=== PATIENT | female | born 1970 | race African-American/Black ===

== ENCOUNTER 2017-02-22 11:14 | Inpatient (IN) | payer MEDICARE, BC ==
[~2017-02-22] VITALS: Ht 162.6 cm; Wt 74.8 kg
[2017-02-22] MEDS: SODIUM CHLORIDE 0.9% FLUSH 10 ML FLUSH IV FLUSH SCH (01:15)
[2017-02-22] MEDS ORDERED: ONDANSETRON HCL 4 MG/2 ML VIAL IV PUSH ONE ×2 (12:00)
[2017-02-22] MEDS ORDERED: PROPOFOL 200 MG/20 ML AMP IV ONE (12:00)
[2017-02-22] MEDS ORDERED: CISATRACURIUM BESYLATE 20 MG/10 ML VIAL IV ONE (12:00)
[2017-02-22] MEDS ORDERED: SODIUM CHLORID 0.9% 500 ML INJ 500 ML IV ONE (12:00)
[2017-02-22] MEDS ORDERED: NORMOSOL R INJ 1,000 ML IV ONE (12:00)
[2017-02-22 13:08] LABS: AUTOMATED NEUTROPHIL # 3.4 TH/MM3 (1.8-7.7); BASOPHIL # 0.1 TH/MM3 (0-0.2); EOSINOPHIL # 0.1 TH/MM3 (0-0.4); EOSINOPHIL % 2.2 % (0.0-4.0); LYMPH % 22.4 % (9.0-44.0); LYMPHOCYTE # 1.2 TH/MM3 (1.0-4.8); MEAN CORPUSCULAR HEMOGLOBIN 23.4 PG (27.0-34.0); MEAN CORPUSCULAR HGB CONC 31.2 % (32.0-36.0); MONO % 12.3 % (0.0-8.0); NEUT % 62.1 % (16.0-70.0); PLATELET COUNT 161 TH/MM3 (150-450); RED CELL DISTRIBUTION WIDTH 19.4 % (11.6-17.2); WHITE BLOOD COUNT 5.5 TH/MM3 (4.0-11.0)
[2017-02-22 13:12] LABS: HEMO FLAGS AUTO DIFF
[2017-02-22 13:16] LABS: APTT (PATIENT) 42.8 SEC (24.3-30.1); INTERNATIONAL NORMALIZED RATIO 1.1 RATIO; PROTHROMBIN TIME - PATIENT 11.7 SEC (9.8-11.6)
[2017-02-22] MEDS ORDERED: SEVEL800 PO (13:28)
[2017-02-22] MEDS ORDERED: LISI-515 PO (13:28)
[2017-02-22] MEDS ORDERED: MYCO500 PO (13:28)
[2017-02-22] MEDS ORDERED: CLON0.1T PO (13:28)
[2017-02-22] MEDS ORDERED: LABE300T PO (13:28)
[2017-02-22] MEDS ORDERED: FURO1TAB61 PO (13:28)
[2017-02-22] MEDS ORDERED: SPIR25 PO (13:28)
[2017-02-22] MEDS ORDERED: ACET1CAP18 PO (13:28)
[2017-02-22] MEDS ORDERED: MYCOPHENOLATE MOFETIL 500 MG TAB PO SCH (13:30)
[2017-02-22] MEDS ORDERED: ACETAMINOPHEN 325 MG TAB PO PRN (13:30)
[2017-02-22] MEDS ORDERED: diphenhydrAMINE HCL 50 MG/ML VIAL IV ONE (13:30)
[2017-02-22] MEDS ORDERED: ceFAZolin 2 GM PREMIX 50 ML IV ONE (13:30)
[2017-02-22] MEDS ORDERED: NALOXONE HCL 0.4 MG/ML AMP IV PRN (13:30)
[2017-02-22] MEDS ORDERED: BISACODYL 10 MG SUPP RECTAL PRN (13:30)
[2017-02-22] MEDS ORDERED: THYMOGLOBULIN ANAPYLAXIS KIT MISC XX PRN (13:30)
[2017-02-22] MEDS ORDERED: methylPREDNISolone SOD SUCC 125 MG/2 ML VIAL IV PUSH ONE (13:30)
[2017-02-22] MEDS ORDERED: SODIUM CHLORIDE 0.9% FLUSH 10 ML FLUSH IV FLUSH PRN (13:30)
[2017-02-22] MEDS ORDERED: ONDANSETRON HCL 4 MG/2 ML VIAL IVP PRN (13:30)
[2017-02-22 13:33] LABS: ALT (GPT) 11 U/L (10-53); ANION GAP 8 MEQ/L (5-15); AST (GOT) 11 U/L (15-37); BLOOD UREA NITROGEN 14 MG/DL (7-18); CHLORIDE 102 MEQ/L (98-107); GLOMERULAR FILTRATION RATE 12 ML/MIN (>89); POTASSIUM 3.5 MEQ/L (3.5-5.1); SODIUM (NA) 139 MEQ/L (136-145)
--- NOTE | 2017-02-22 13:35 | HHI.HP ---
[facility] Service Transplant Medicine Primary Care Physician Marco Valadez MD Admission Diagnosis End-stage renal disease for kidney transplant Diagnoses: (1) ESRD (end stage renal disease) on dialysis Diagnosis: Principal (2) Hypertension Diagnosis: Secondary (3) SLE (systemic lupus erythematosus) Diagnosis: Secondary Chief Complaint: Here for kidney transplant International Travel<30 Days: No Contact w/Intl Traveler<30days: No Known Affected Area: No History of Present Illness Patient is a 47-year-old female with history of end-stage renal disease, diabetes, hypertension, SLE who is on hemodialysis has a left arm AV fistula received her dialysis this morning, she was called in for a kidney transplant, she denies any chest pain shortness of breath palpitations, fevers chills at, nausea vomiting diarrhea, she states she is in fine health and there are no medical issues, she saw us in and out of December this year, she is on the list for kidney transplant. Review of Systems Constitutional: DENIES: Diaphoretic episodes, Fatigue, Fever, Weight gain, Weight loss, Chills, Dizziness, Change in appetite, Night Sweats Endocrine: COMPLAINS OF: Abnorml menstrual pattern, DENIES: Heat/cold intolerance, Polydipsia, Polyuria, Polyphagia Eyes: DENIES: Blurred vision, Diplopia, Eye inflammation, Eye pain, Vision loss , Photosensitivity, Double Vision Ears, nose, mouth, throat: DENIES: Tinnitus, Hearing loss, Vertigo, Nasal discharge, Oral lesions, Throat pain, Hoarseness, Ear Pain, Running Nose, Epistaxis, Sinus Pain, Toothache, Odynophagia Respiratory: DENIES: Apneas, Cough, Snoring, Wheezing, Hemoptysis, Sputum production, Shortness of breath Cardiovascular: DENIES: Chest pain, Palpitations, Syncope, Dyspnea on Exertion , PND, Lower Extremity Edema, Orthopnea, Claudication Gastrointestinal: DENIES: Abdominal pain, Black stools, Bloody stools, Constipation, Diarrhea, Nausea, Vomiting, Difficulty Swallowing, Anorexia Genitourinary: DENIES: Abnormal vaginal bleeding, Dysmenorrhea, Dyspareunia, Sexual dysfunction, Urinary frequency, Urinary incontinence, Urgency, Hematuria , Dysuria, Nocturia, Vaginal discharge Musculoskeletal: DENIES: Joint pain, Muscle aches, Stiffness, Joint Swelling, Back pain, Neck pain Integumentary: DENIES: Abnormal pigmentation, Pruritus, Rash, Nail changes, Breast masses, Breast skin changes, Nipple discharge Hematologic/lymphatic: DENIES: Bruising, Lymphadenopathy Immunologic/allergic: DENIES: Eczema, Urticaria Neurologic: DENIES: Abnormal gait, Headache, Localized weakness, Paresthesias, Seizures, Speech Problems, Tremor, Poor Balance Psychiatric: DENIES: Anxiety, Confusion, Mood changes, Depression, Hallucinations, Agitation, Suicidal Ideation, Homicidal Ideation, Delusions Past Family Social History Past Medical History End-stage renal disease on hemodialysis goes on Monday and Monday History of peritoneal dialysis Hypertension Diabetes diet controlled SLE Anemia Secondary hyperparathyroidism Past Surgical History Tenckhoff catheter placement and removal AV fistula left arm Reported Medications Reported Meds & Active Scripts Active Reported Tylenol (Acetaminophen) 325 Mg Cap 650 Mg PO Q6H PRN Renvela (Sevelamer Carbonate) 800 Mg Tab 800 Mg PO TIDAC Lisinopril 20 Mg Tab 20 Mg PO BID Aldactone (Spironolactone) 25 Mg Tab 25 Mg PO BID Labetalol (Labetalol HCl) 300 Mg Tab 300 Mg PO TID Cellcept (Mycophenolate Mofetil) 500 Mg Tab 500 Mg PO BID Lasix (Furosemide) 80 Mg Tab 80 Mg PO BID Clonidine (Clonidine HCl) 0.1 Mg Tab 0.1 Mg PO BID PRN Allergies: Coded Allergies: No Known Allergies (Unverified , 02/22/17) Active Ordered Medications Current Medications Medications (Trade) Dose Ordered Sig/Handy Route Start Time Stop Time Status Last Admin (NS 1000 ml Inj) 1,000 ml @ 40 mls/hr Q24H IV 02/22/17 13:00 Family History Her mother had hemodialysis and kidney failure diabetes Social History Denies smoking or alcohol use Physical Exam Vital Signs BP 141/88 P 76 T 98.3 RR 16 Physical Exam GENERAL: This is a well-nourished, well-developed patient, in no apparent distress. SKIN: No rashes, ecchymoses or lesions. Cool and dry. HEAD: Atraumatic. Normocephalic. No temporal or scalp tenderness. EYES: Pupils equal round and reactive. Extraocular motions intact. No scleral icterus. No injection or drainage. ENT: Nose without bleeding, purulent drainage or septal hematoma. Throat without erythema, tonsillar hypertrophy or exudate. Uvula midline. Airway patent. NECK: Trachea midline. No JVD or lymphadenopathy. Supple, nontender, no meningeal signs. CARDIOVASCULAR: Regular rate and rhythm without murmurs, gallops, or rubs. RESPIRATORY: Clear to auscultation. Breath sounds equal bilaterally. No wheezes , rales, or rhonchi. GASTROINTESTINAL: Abdomen soft, non-tender, nondistended. No hepato-splenomegaly , or palpable masses. No guarding. MUSCULOSKELETAL: Extremities without clubbing, cyanosis, or edema. No joint tenderness, effusion, or edema noted. No calf tenderness. Negative Homans sign bilaterally. AV fistula left arm NEUROLOGICAL: Awake and alert. Cranial nerves II through XII intact. Motor and sensory grossly within normal limits. Five out of 5 muscle strength in all muscle groups. Normal speech. Laboratory Laboratory Tests Test 02/22/17 02/22/17 12:16 12:41 White Blood Count 5.5 Red Blood Count 4.40 Hemoglobin 10.3 Hematocrit 33.0 Mean Corpuscular Volume 75.0 Mean Corpuscular Hemoglobin 23.4 Mean Corpuscular Hemoglobin 31.2 Concent Red Cell Distribution Width 19.4 Platelet Count 161 Mean Platelet Volume 9.4 Neutrophils (%) (Auto) 62.1 Lymphocytes (%) (Auto) 22.4 Monocytes (%) (Auto) 12.3 Eosinophils (%) (Auto) 2.2 Basophils (%) (Auto) 1.0 Neutrophils # (Auto) 3.4 Lymphocytes # (Auto) 1.2 Monocytes # (Auto) 0.7 Eosinophils # (Auto) 0.1 Basophils # (Auto) 0.1 CBC Comment AUTO DIFF Prothrombin Time 11.7 Prothromb Time International 1.1 Ratio Activated Partial 42.8 Thromboplast Time Blood Type A POSITIVE Result Diagram: 02/22/17 1216 Assessment and Plan Problem List: (1) ESRD (end stage renal disease) on dialysis Status: Chronic Plan: Patient has received kidney transplant offer, she appears to good candidate and has been on the list initiated the protocol give her CellCept, she will receive Solu-Medrol and Thymoglobulin in the operating room Dr. Amador will follow She understands that that after the transplant. His gradual improvement and occasionally hemodialysis needs to be performed (2) Hypertension Status: Acute Plan: Continue monitor (3) SLE (systemic lupus erythematosus) Status: Chronic Plan: Patient has been treated in the past Physician Certification 2 Midnight Certification Type: Admission for Inpatient Services Order for Inpatient Services The services are ordered in accordance with Medicare regulations or non- Medicare payer requirements, as applicable. In the case of services not specified as inpatient-only, they are appropriately provided as inpatient services in accordance with the 2-midnight benchmark. Estimated LOS (days): 5 days is the estimated time the patient will need to remain in the hospital, assuming treatment plan goals are met and no additional complications. Post-Hospital Plan: Home Alfredito Issa MD February 22, 2017 13:35
[2017-02-22 13:36] LABS: ALKALINE PHOSPHATASE 73 U/L (45-117); TOTAL BILIRUBIN ADULT 0.5 MG/DL (0.2-1.0)
[2017-02-22 13:37] LABS: SCAN/DIFF AUTO DIFF CONFIRMED
[2017-02-22] MEDS ORDERED: ANTITHYMOCYTE GLOB IV-CENTRAL ONE (14:00)
[2017-02-22] MEDS ORDERED: DOCUSATE SODIUM 100 MG CAP PO SCH (14:00)
[2017-02-22] MEDS ORDERED: SODIUM CHLORID 0.9% IV-CENTRAL ONE (14:00)
[2017-02-22] MEDS ORDERED: SODIUM CHLOR 0.9% 1000 ML INJ 1,000 ML IV SCH (14:00)
--- NOTE | 2017-02-22 14:01 | RADRPT ---
EXAM DATE/TIME: 02/22/2017 13:42 [facility] COMPARISON: No previous studies available for comparison. INDICATIONS : Evaluate for pneumonia, pneumothorax or communicable disease. Pre op for kidney transplant. MEDICAL HISTORY : Hypertension. Anemia. Diabetic. SURGICAL HISTORY : AV fistula. ENCOUNTER: Initial ACUITY: 1 day PAIN SCORE: 0/10 LOCATION: Chest FINDINGS: A right internal jugular tunnel dialysis catheter has its tips in the superior vena cava. There is n o pneumothorax. The heart is mildly prominent. The pulmonary vascular pattern is normal. The lungs are clear. CONCLUSION: 1. No acute focal pulmonary infiltrate or pulmonary vascular congestion. 2. Mild cardiomegaly. Dustin Heaton MD on February 22, 2017 at 13:57 Board Certified Radiologist. This report was verified electronically.
[2017-02-22] MEDS: NS 1000 ML IV SCH (14:30)
[2017-02-22 15:00] VITALS: PULSE 76
[2017-02-22 15:47] VITALS: BP 141/88; PULSE 80; RESP 16; TEMP 98.3; O2SAT 100
[2017-02-22] MEDS ORDERED: BUPIVACAINE HCL PF 0.5% 30 ML VIAL ONE (15:48)
[2017-02-22] MEDS ORDERED: SODIUM BICARBONATE 8.4% INJ 50 ML ONE (15:48)
[2017-02-22] MEDS ORDERED: PAPAVERINE INJ 60 MG/2 ML VIAL ONE (15:49)
[2017-02-22] MEDS ORDERED: MINERAL OIL 10 ML VIAL ONE (15:49)
[2017-02-22] MEDS ORDERED: HEPARIN SODIUM - SQ 10,000 UNITS/ML VIAL ONE (15:49)
[2017-02-22] MEDS ORDERED: LIDOCAINE HCL 2% 50 ML VIAL ONE (15:49)
[2017-02-22 16:05] VITALS: PULSE 79
[2017-02-22] MEDS ORDERED: ACETAMINOPHEN 1000 MG/100 ML VIAL IV ONE (18:32)
[2017-02-22] MEDS ORDERED: MIDAZOLAM HCL 2 MG/2 ML VIAL ONE (19:59)
[2017-02-22] MEDS ORDERED: fentaNYL CITRATE 250 MCG/5 ML AMP ONE (19:59)
[2017-02-22] MEDS ORDERED: BACITRACIN IM FOR SOLN 50,000 UNIT VIAL IM ONE (21:33)
[2017-02-22] MEDS ORDERED: CUSTODIOL HTK IRR SOLN 1,000 ML IRRIGATION ONE (21:40)
[2017-02-22 22:44] LABS: BLOOD GAS BASE EXCESS -2.7 mmol/L (-2-2); BLOOD GAS CARBOXYHEMOGLOBIN 1.8 % (0-4); BLOOD GAS HCO3 21 mmol/L (22-26); BLOOD GAS METHEMOGLOBIN 1.6 % (0-2); BLOOD GAS O2 HGB SATURATION 96 % (90-100); BLOOD GAS OXYGEN CONTENT 14.7 Vol % (12.0-20.0); BLOOD GAS PCO2 31 mmHg (38-42); BLOOD GAS PO2 228 mmHg (61-120); BLOOD GAS TOTAL HGB 10.5 G/DL (12.0-16.0); CRITICAL VALUE NO; DRAW SITE OR GAS; FIO2 52 %; OXYGEN DEVICE OR GAS; TEMP CORR TO 98.6; VENT SETTINGS OR GAS
[2017-02-23] VITALS (16 sets, daily range): BP systolic 143–186; BP diastolic 68–96; PULSE 73–102; RESP 16–20; TEMP 98.6–99.8; O2SAT 98–100
[2017-02-23] MEDS ORDERED: MORPHINE SULFATE 30 MG/30 ML PCA ONE (00:49)
[2017-02-23] MEDS ORDERED: ONDANSETRON INJ 8 MG in DEXTROSE 5% IN WATER INJ 50 ML IV PRN ×2 (01:00)
[2017-02-23] MEDS ORDERED: GLUCAGON 1 MG/ML VIAL OTHER PRN (01:00)
[2017-02-23] MEDS ORDERED: RESP: ALBUTEROL 2.5 MG/IPRATROPIUM 0.5 MG NEB (PRN) INH (01:00)
[2017-02-23] MEDS ORDERED: DEXTROSE 50% IN WATER 50 ML VIAL(D50) IV PUSH PRN (01:00)
[2017-02-23] MEDS: PCA - TOTAL MG MORPHINE DELIVERED PER SHIFT SCH ×3 (01:00→22:00)
[2017-02-23] MEDS ORDERED: NALOXONE HCL 0.4 MG/ML AMP IV PRN (01:00)
[2017-02-23] MEDS ORDERED: ONDANSETRON HCL 4 MG/2 ML VIAL IV PRN (01:00)
[2017-02-23] MEDS ORDERED: diphenhydrAMINE HCL 25 MG CAP PO PRN (01:00)
[2017-02-23] MEDS ORDERED: diphenhydrAMINE HCL 50 MG/ML VIAL IV PRN (01:00)
[2017-02-23] MEDS: DEXT 5%-NACL 0.45% 1000 ML INJ 1,000 ML IV SCH ×2 (01:15→22:20)
[2017-02-23] MEDS ORDERED: *morphine SULFATE 8 MG/ML PERIprocedure ONLY ONE (01:19)
[2017-02-23 01:33] LABS: AUTOMATED NEUTROPHIL # 7.7 TH/MM3 (1.8-7.7); BASOPHIL % 0.2 % (0.0-2.0); EOSINOPHIL % 0.1 % (0.0-4.0); HEMATOCRIT 32.2 % (35.0-46.0); LYMPH % 0.3 % (9.0-44.0); MEAN CORPUSCULAR HEMOGLOBIN 23.7 PG (27.0-34.0); MEAN CORPUSCULAR HGB CONC 32.1 % (32.0-36.0); MONO % 5.3 % (0.0-8.0); NEUT % 94.1 % (16.0-70.0); PLATELET COUNT 141 TH/MM3 (150-450); RED BLOOD COUNT 4.35 MIL/MM3 (4.00-5.30); RED CELL DISTRIBUTION WIDTH 19.4 % (11.6-17.2); WHITE BLOOD COUNT 8.2 TH/MM3 (4.0-11.0)
[2017-02-23 01:34] LABS: HEMO FLAGS AUTO DIFF
--- NOTE | 2017-02-23 01:47 | RADRPT ---
EXAM DATE/TIME: 02/23/2017 01:10 [facility] COMPARISON: No previous studies available for comparison. INDICATIONS : Post line placement. MEDICAL HISTORY : Hypertension. Diabetes mellitus type II. SURGICAL HISTORY : Kidney transplant. ENCOUNTER: Initial ACUITY: 1 day PAIN SCORE: Non-responsive. LOCATION: Bilateral chest FINDINGS: The cardiac silhouette is enlarged in transverse diameter. There is prominence of the central pulmona ry vasculature with indistinct vascular margins compatible with vascular congestion but no evidence o f overt failure. A left sided internal jugular vein catheter is in place without pneumothorax with it s tip in the superior vena cava. A permacath is in place via right internal jugular approach with its tip in the superior vena cava. CONCLUSION: 1. Uncomplicated line placement. No evidence of pneumothorax. Howard Hernandez MD on February 23, 2017 at 1:43 Board Certified Radiologist. This report was verified electronically.
[2017-02-23 01:56] LABS: BICARBONATE 24.7 MEQ/L (21.0-32.0); MAGNESIUM 1.9 MG/DL (1.5-2.5)
[2017-02-23 02:12] LABS: BANDS 3 % (0-6); NEUTROPHIL # MANUAL DIFF 7.8 TH/MM3 (1.8-7.7); POLYS (SEG NEUTROPHILS) 92 % (16-70); SCAN/DIFF FINAL DIFF MANUAL; WBC DIFF SAMPLE 100
[2017-02-23 02:14] LABS: ACANTHOCYTES OCC (NORMAL); OVALOCYTES 1+ (NORMAL); PLATELET ESTIMATE SMEAR NORMAL (NORMAL); PLATELET MORPHOLOGY NORMAL (NORMAL)
[2017-02-23] MEDS: MORPHINE SULFATE 30 MG/30 ML PCA IV SCH (02:18)
[2017-02-23 06:26] LABS: AUTOMATED NEUTROPHIL # 8.9 TH/MM3 (1.8-7.7); BASOPHIL % 0.2 % (0.0-2.0); HEMATOCRIT 31.9 % (35.0-46.0); LYMPH % 0.6 % (9.0-44.0); LYMPHOCYTE # 0.1 TH/MM3 (1.0-4.8); MEAN CELL VOLUME 74.5 FL (80.0-100.0); MEAN CORPUSCULAR HEMOGLOBIN 23.8 PG (27.0-34.0); MONO % 4.3 % (0.0-8.0); NEUT % 94.9 % (16.0-70.0); PLATELET COUNT 152 TH/MM3 (150-450); RED BLOOD COUNT 4.28 MIL/MM3 (4.00-5.30); RED CELL DISTRIBUTION WIDTH 19.2 % (11.6-17.2); WHITE BLOOD COUNT 9.3 TH/MM3 (4.0-11.0)
[2017-02-23 06:39] LABS: HEMO FLAGS AUTO DIFF
[2017-02-23 06:59] LABS: BICARBONATE 23.7 MEQ/L (21.0-32.0); POTASSIUM 3.9 MEQ/L (3.5-5.1)
[2017-02-23] MEDS: INSULIN NovoLIN REGULAR SUPPLEMENTAL SCALE SQ SCH ×4 (07:00→21:00)
[2017-02-23] MEDS: NYSTATIN SUSP 500,000 U/5 ML CUP SWISH-SWAL SCH ×3 (08:56→21:18)
[2017-02-23] MEDS: CALCIUM CARBONATE 500 MG CHEWABLE TAB CHEW SCH ×2 (08:57→16:00)
[2017-02-23] MEDS: PANTOPRAZOLE SODIUM 40 MG VIAL IV PUSH SCH (08:58)
[2017-02-23] MEDS: SODIUM CHLORIDE 0.9% FLUSH 10 ML FLUSH IV FLUSH SCH ×2 (08:58→21:23)
--- NOTE | 2017-02-23 09:21 | HHI.PR ---
Immediate Post Op Note Procedure Date: February 23, 2017 Pre Op Diagnosis: (1) ESRD (end stage renal disease) on dialysis Post Op Diagnosis: (1) ESRD (end stage renal disease) on dialysis Surgeon: Michele Amador Yard Hostler(s): Kristy Procedure: Donor Kidney Transplant Findings: 1) Very adherent retroperitoneum Complications: No known complications Specimen(s) removed: None Estimated blood loss: 150 cc Anesthesia: General Drains: Other (19 Fr Jose G drain) IVF (1900 cc crystalloid) Patient to: PACU Patient Condition: Good Michele Amador MD February 23, 2017 09:21
--- NOTE | 2017-02-23 09:28 | HHI.PR ---
Subjective Remarks Awake this AM; c/o mild incisional pain; using breathing device well; overnight events re: urinary catheter noted Objective Vital Signs Date Time Temp Pulse Resp B/P Pulse Ox O2 Delivery O2 Flow Rate FiO2 02/23/17 08:27 100 Nasal Cannula 2.00 02/23/17 06:00 86 02/23/17 05:00 86 02/23/17 05:00 98.7 86 16 150/82 100 176/77 02/23/17 04:00 86 02/23/17 03:30 98.8 73 16 150/86 98 180/76 02/23/17 03:00 88 02/23/17 02:18 14 02/23/17 02:15 98.8 84 16 145/81 100 177/68 02/23/17 02:15 84 02/23/17 02:00 98.6 84 15 155/82 100 Nasal Cannula 2 02/23/17 01:45 79 15 145/78 100 Nasal Cannula 3 163/68 02/23/17 01:30 77 15 151/84 100 Nasal Cannula 3 164/70 02/23/17 01:15 74 14 150/85 100 Nasal Cannula 3 166/73 02/23/17 01:00 98.9 72 14 153/81 100 Nasal Cannula 3 165/72 02/23/17 01:00 14 02/22/17 16:05 79 02/22/17 15:47 98.3 80 16 141/88 100 02/22/17 15:00 76 I/O 02/22/17 02/22/17 02/22/17 02/23/17 02/23/17 02/23/17 07:00 15:00 23:00 07:00 15:00 23:00 Intake Total 3174 ml Output Total 890 ml Balance 2284 ml Intake Oral 0 ml IV Total 774 ml Other 2400 ml Output Urine Total 615 ml Drainage Total 125 ml Estimated Blood Loss 150 ml Other 0 ml # Bowel Movements 0 Result Diagram: 02/23/17 0550 02/23/17 0550 Objective Remarks -no NGT -dressing dry, intact -Jose G drain with serosanguinous drainage -Rojas with reid urine -min extrem edema A line site w/o bleeding Assessment and Plan Assessment and Plan Doing well post op; creatinine trending down. will d/c a-line when BP stable and on BP meds. Michele Amador MD February 23, 2017 09:28
--- NOTE | 2017-02-23 09:36 | PD.OP ---
Operative Report Preoperative Diagnosis: (1) ESRD (end stage renal disease) on dialysis Postoperative Diagnosis: (1) ESRD (end stage renal disease) on dialysis Procedure: donor Kidney Transplant Anesthesia: GETA local Surgeon: Michele Amador Deburring Machine Operator(s): Kristy Resident Surgeon: none Operation and Findings: INDICATIONS FOR THE PROCEDURE The patient is a 47-year-old female with end-stage renal disease. She is here to receive a donor kidney transplant. INTRAOPERATIVE FINDINGS 1. Normal relationship between the internal iliac artery and the left external iliac vein. 2. Round ligament identified and divided] DESCRIPTION OF THE PROCEDURE The patient received prophylactic intravenous antibiotics followed by inhalational and intravenous anesthetic agents prior to and the endotracheal intubation. She had previously received Solu-Medrol and Thymoglobulin for induction. She was then positioned, prepped and draped in a sterile fashion. After local anesthesia with Marcaine and Lidocaine was infiltrated into the intended incision site, a [left/right] lower quadrant curvilinear incision was then performed with division of the external and internal oblique muscles and preservation of the rectus. En route, the inferior epigastrics were divided, but the round ligament was identified, isolated and ligated. Once the peritoneum was visualized, it was mobilized medially so as to expose the retroperitoneum. A Bookwalter retractor was placed for optimal exposure. The lymphatics in the tissue overlying the iliac vessels were carefully dissected and ligated using silk ties and surgical clips. A Satinsky clamp was placed on the external iliac vein and a longitudinal venotomy was performed. The renal vein to the external iliac vein and anastomosis was performed using a continuous 5-0 Prolene suture. Similarly, two angled pedicle clamps were used to vascularly isolate the external iliac artery. An arteriotomy was performed using dual punches from a 4-0 arterial punch. The arterial anastomosis was performed using continuous 6-0 Prolene suture. The same approach was used for the second arterial anastomosis. Prior to completion of each anastomosis, the vessels were irrigated with heparinized saline. With completion of the arterial anastomosis, the vascular clamps are released with a good perfusion of allograft. The bladder was then filled with antibiotic solution and the mucosa was exposed for implantation. The ureter was trimmed to size, spatulated, and with the mucosa opened, a ureteroneocystostomy was performed using a continuous 6-0 PDS suture. The anastomosis was then placed under vascularized tissue using the runner suture. Hemostasis in the dissected area was achieved. Urine was produced by the allograft prior to implantation of the ureter. A 19-Welsh Jose G drain was placed in the wound cavity and the incision was then closed using a two-layered closure with #1 PDS in the superficial layer and #1 Prolene in the deep layer. The skin was approximated using smita. Complications during the case: 2 mm serosal ehladio, reinforced with 6-0 prolene Michele Amador MD February 23, 2017 09:35
[2017-02-23 10:08] LABS: SCAN/DIFF AUTO DIFF CONFIRMED
[2017-02-23] MEDS ORDERED: THYMOGLOBULIN ANAPYLAXIS KIT MISC XX PRN (10:30)
--- NOTE | 2017-02-23 10:33 | HHI.NPPN ---
Subjective History of Present Illness 47 year old BF with SLE ESRD has Kidney transplant done Review of Systems General Constitutional: Fatigue Gastrointestinal Gastrointestinal: Abdominal Pain Objective Data Data 02/22/17 02/23/17 19:00 07:00 Intake Total 3174 ml Output Total 890 ml Balance 2284 ml Intake Oral 0 ml IV Total 774 ml Other 2400 ml Output Urine Total 615 ml Drainage Total 125 ml Estimated Blood Loss 150 ml Other 0 ml # Bowel Movements 0 Vital Signs Date Time Temp Pulse Resp B/P Pulse Ox O2 Delivery O2 Flow Rate FiO2 02/23/17 10:00 84 02/23/17 09:15 98 Room Air 02/23/17 09:00 98.9 84 16 143/82 100 186/79 02/23/17 09:00 86 02/23/17 09:00 100 Nasal Cannula 2.00 02/23/17 08:27 100 Nasal Cannula 2.00 02/23/17 06:00 86 02/23/17 05:00 86 02/23/17 05:00 98.7 86 16 150/82 100 176/77 02/23/17 04:00 86 02/23/17 03:30 98.8 73 16 150/86 98 180/76 02/23/17 03:00 88 02/23/17 02:18 14 02/23/17 02:15 98.8 84 16 145/81 100 177/68 02/23/17 02:15 84 02/23/17 02:00 98.6 84 15 155/82 100 Nasal Cannula 2 02/23/17 01:45 79 15 145/78 100 Nasal Cannula 3 163/68 02/23/17 01:30 77 15 151/84 100 Nasal Cannula 3 164/70 02/23/17 01:15 74 14 150/85 100 Nasal Cannula 3 166/73 02/23/17 01:00 98.9 72 14 153/81 100 Nasal Cannula 3 165/72 02/23/17 01:00 14 02/22/17 16:05 79 02/22/17 15:47 98.3 80 16 141/88 100 02/22/17 15:00 76 -: 02/23/17 0550 02/23/17 0550 Physical Exam General Appearance: Well Developed, Well Nourished Pulmonary Resp Exam: Clear Bilaterally Cardiology CV Exam: Regular, Normal Sinus Rhythm Gastrointestinal/Abdomen GI Exam: Soft, Bowel Sounds Hypoactive Integumentary Skin Exam: Clear Assessment/Plan Problem List: (1) Kidney transplant status, cadaveric Plan: patient is passing urine creatinine declined 2nd dos of Thymoglobulin today monitor for recovery continue Cellcept follow BMP Patient is CMV negative on Valcyte 900 mg (2) Hypertension Plan: add Norvasc 5 mg restart Labetalol Alfredito Issa MD February 23, 2017 10:32
[2017-02-23] MEDS: amLODIPine BESYLATE 5 MG TAB PO SCH (10:49)
[2017-02-23] MEDS: NS 1000 ML IV SCH (11:07)
[2017-02-23] MEDS: LABETALOL HCL 300 MG TAB PO SCH ×2 (13:59→17:01)
[2017-02-23] MEDS ORDERED: methylPREDNISolone SOD SUCC 125 MG/2 ML VIAL IV PUSH ONE (18:00)
[2017-02-23] MEDS ORDERED: HYDROCORTISONE SOD SUCCINATE 100 MG VIAL ONE (18:19)
[2017-02-23] MEDS ORDERED: EPINEPHrine HCL (1:10,000) 1 MG/10 ML SYRINGE ONE (18:19)
[2017-02-23] MEDS ORDERED: ACETAMINOPHEN 325 MG TAB PO ONE (18:30)
[2017-02-23] MEDS ORDERED: diphenhydrAMINE HCL 50 MG CAP PO ONE (18:30)
--- NOTE | 2017-02-23 18:44 | EKG ---
Date Performed: 02/22/2017 Time Performed: 12:29:56 PTAGE: 47 years EKG: Sinus rhythm with borderline 1st degree A-V block Poor R wave progression - probable normal variant Borderline EC G NO PREVIOUS TRACING DOCTOR: Howard Falcon Interpretating Date/Time 02/23/2017 18:42:35
[2017-02-23] MEDS ORDERED: SODIUM CHLORID 0.9% IV-CENTRAL ONE (19:00)
[2017-02-23] MEDS ORDERED: ANTITHYMOCYTE GLOB IV-CENTRAL ONE (19:00)
[2017-02-23] MEDS: DOCUSATE SODIUM 100 MG CAP PO SCH (21:18)
[2017-02-23] MEDS ORDERED: hydrALAZINE HCL 20 MG/ML VIAL IV PUSH PRN (21:30)
[2017-02-23] MEDS: SODIUM CHLOR 0.45% 1000 ML INJ 1,000 ML IV SCH (23:07)
[2017-02-24] VITALS (9 sets, daily range): BP systolic 152–220; BP diastolic 81–96; PULSE 80–95; RESP 16–18; TEMP 98–99.2; O2SAT 97–99
[2017-02-24] MEDS: PCA - TOTAL MG MORPHINE DELIVERED PER SHIFT SCH ×3 (05:53→22:00)
[2017-02-24] MEDS: MYCOPHENOLATE MOFETIL INJ 1,000 MG in DEXTROSE 5% IN WATE 150 ML INJ 150 ML IV SCH ×2 (06:00)
[2017-02-24] MEDS: MYCOPHENOLATE MOFETIL 500 MG TAB PO SCH ×2 (06:05→17:59)
[2017-02-24] MEDS: TACROLIMUS 1 MG CAP PO SCH ×2 (06:05→18:00)
[2017-02-24] MEDS: INSULIN NovoLIN REGULAR SUPPLEMENTAL SCALE SQ SCH ×2 (06:06→11:50)
[2017-02-24 06:22] LABS: AUTOMATED NEUTROPHIL # 8.8 TH/MM3 (1.8-7.7); BASOPHIL % 0.2 % (0.0-2.0); HEMATOCRIT 31.3 % (35.0-46.0); HEMO FLAGS AUTO DIFF; LYMPH % 0.6 % (9.0-44.0); LYMPHOCYTE # 0.1 TH/MM3 (1.0-4.8); MEAN CELL VOLUME 73.9 FL (80.0-100.0); MEAN CORPUSCULAR HGB CONC 32.5 % (32.0-36.0); MONO % 5.3 % (0.0-8.0); NEUT % 93.9 % (16.0-70.0); PLATELET COUNT 145 TH/MM3 (150-450); RED BLOOD COUNT 4.24 MIL/MM3 (4.00-5.30); RED CELL DISTRIBUTION WIDTH 19.6 % (11.6-17.2); WHITE BLOOD COUNT 9.4 TH/MM3 (4.0-11.0)
[2017-02-24 07:09] LABS: BICARBONATE 24.1 MEQ/L (21.0-32.0)
[2017-02-24 07:16] LABS: SCAN/DIFF AUTO DIFF CONFIRMED
[2017-02-24] MEDS: LABETALOL HCL 300 MG TAB PO SCH ×3 (07:28→17:59)
--- NOTE | 2017-02-24 08:43 | HHI.PR ---
Subjective Remarks Awake this AM; c/o mild stomach discomfort; did not sleep as well as yesterday; using incentive spirometer; started PO meds this AM Objective Vital Signs Date Time Temp Pulse Resp B/P Pulse Ox O2 Delivery O2 Flow Rate FiO2 02/24/17 07:30 99 21 02/24/17 05:53 20 02/24/17 03:00 87 02/24/17 03:00 98.5 95 18 156/89 99 02/23/17 23:09 98.9 99 20 173/96 100 02/23/17 23:09 101 02/23/17 22:00 18 02/23/17 21:50 100 21 02/23/17 19:00 99 Room Air 02/23/17 19:00 102 02/23/17 19:00 99.8 99 16 171/92 99 02/23/17 15:29 98.7 90 16 158/87 100 179/78 02/23/17 15:00 90 02/23/17 14:00 18 02/23/17 11:13 98.6 85 18 145/82 99 178/74 02/23/17 11:00 85 02/23/17 10:00 84 02/23/17 09:15 98 Room Air 02/23/17 09:00 98.9 84 16 143/82 100 186/79 02/23/17 09:00 86 02/23/17 09:00 100 Nasal Cannula 2.00 I/O 02/23/17 02/23/17 02/23/17 02/24/17 02/24/17 02/24/17 07:00 15:00 23:00 07:00 15:00 23:00 Intake Total 3174 ml 960 ml 1853 ml Output Total 890 ml 1080 ml 915 ml Balance 2284 ml -120 ml 938 ml Intake Oral 0 ml 960 ml 0 ml IV Total 774 ml 1853 ml Other 2400 ml Output Urine Total 615 ml 1035 ml 885 ml Drainage Total 125 ml 45 ml 30 ml Estimated Blood Loss 150 ml Other 0 ml # Bowel Movements 0 0 0 Result Diagram: 02/24/17 0540 02/24/17 0540 Objective Remarks -no NGT -dressing dry stained -Jose G drain with serosanguinous drainage (75cc for 24 h) -Rojas with reid urine (1920 cc for 24h) -min extrem edema A line site w/o bleeding Assessment and Plan Assessment and Plan Creatinine trending down. will d/c a-line today; GI symptoms possibly due to PO meds on empty stomach; OOB today; will monitor urine output rate Michele Amador MD February 24, 2017 08:43
[2017-02-24] MEDS: CALCIUM CARBONATE 500 MG CHEWABLE TAB CHEW SCH (09:04)
[2017-02-24] MEDS: amLODIPine BESYLATE 5 MG TAB PO SCH ×2 (09:04→21:02)
[2017-02-24] MEDS: SULFAMETHOXAZOLE-TRIMETHOPRIM DS 800-160 MG TAB PO SCH (09:04)
[2017-02-24] MEDS: DOCUSATE SODIUM 100 MG CAP PO SCH ×2 (09:04→21:02)
[2017-02-24] MEDS: PANTOPRAZOLE SODIUM 40 MG VIAL IV PUSH SCH (09:04)
[2017-02-24] MEDS: NYSTATIN SUSP 500,000 U/5 ML CUP SWISH-SWAL SCH ×3 (09:05→21:02)
[2017-02-24] MEDS: SODIUM CHLORIDE 0.9% FLUSH 10 ML FLUSH IV FLUSH SCH ×2 (09:07→21:00)
--- NOTE | 2017-02-24 11:43 | HHI.NPPN ---
Subjective History of Present Illness 47 year old BF with SLE ESRD has Kidney transplant done Review of Systems General Constitutional: Fatigue Gastrointestinal Gastrointestinal: Abdominal Pain Objective Data Data 02/23/17 02/24/17 19:00 07:00 Intake Total 960 ml 1853 ml Output Total 1080 ml 915 ml Balance -120 ml 938 ml Intake Oral 960 ml 0 ml IV Total 1853 ml Output Urine Total 1035 ml 885 ml Drainage Total 45 ml 30 ml # Bowel Movements 0 0 Vital Signs Date Time Temp Pulse Resp B/P Pulse Ox O2 Delivery O2 Flow Rate FiO2 02/24/17 11:16 92 02/24/17 11:16 98.8 92 16 174/96 97 Arterial Line 02/24/17 07:30 99 21 02/24/17 07:30 98 Room Air 02/24/17 07:30 99.2 88 18 163/91 98 220/81 02/24/17 07:30 88 02/24/17 05:53 20 02/24/17 03:00 87 02/24/17 03:00 98.5 95 18 156/89 99 02/23/17 23:09 98.9 99 20 173/96 100 02/23/17 23:09 101 02/23/17 22:00 18 02/23/17 21:50 100 21 02/23/17 19:00 99 Room Air 02/23/17 19:00 102 02/23/17 19:00 99.8 99 16 171/92 99 02/23/17 15:29 98.7 90 16 158/87 100 179/78 02/23/17 15:00 90 02/23/17 14:00 18 -: 02/24/17 0540 02/24/17 0540 Physical Exam General Appearance: Well Developed, Well Nourished Pulmonary Resp Exam: Clear Bilaterally Cardiology CV Exam: Regular, Normal Sinus Rhythm Gastrointestinal/Abdomen GI Exam: Soft, Bowel Sounds Hypoactive Integumentary Skin Exam: Clear Assessment/Plan Problem List: (1) Kidney transplant status, cadaveric Plan: patient is passing urine creatinine declined 3rd dose of Thymoglobulin today good recovery continue Cellcept started Prograf 3 mg q 12, follow level follow BMP Patient is CMV negative on Valcyte 900 mg (2) Hypertension Plan: on Norvasc 5 mg increase to bid Labetalol Alfredito Issa MD February 24, 2017 11:43
[2017-02-24] MEDS ORDERED: THYMOGLOBULIN ANAPYLAXIS KIT MISC XX PRN (11:45)
[2017-02-24] MEDS ORDERED: methylPREDNISolone SOD SUCC 125 MG/2 ML VIAL IV PUSH ONE (17:00)
[2017-02-24] MEDS ORDERED: diphenhydrAMINE HCL 50 MG CAP PO ONE (17:00)
[2017-02-24] MEDS ORDERED: ACETAMINOPHEN 325 MG TAB PO ONE (17:00)
[2017-02-24] MEDS ORDERED: ANTITHYMOCYTE GLOB IV-CENTRAL ONE (17:30)
[2017-02-24] MEDS ORDERED: SODIUM CHLORID 0.9% IV-CENTRAL ONE (17:30)
[2017-02-25] VITALS (21 sets, daily range): BP systolic 138–171; BP diastolic 77–102; PULSE 72–84; RESP 16–20; TEMP 97.4–98.2; O2SAT 98–100
[2017-02-25] MEDS: DEXT 5%-NACL 0.45% 1000 ML INJ 1,000 ML IV SCH ×2 (00:58→21:18)
[2017-02-25] MEDS: MYCOPHENOLATE MOFETIL 500 MG TAB PO SCH ×2 (05:15→17:47)
[2017-02-25] MEDS: MYCOPHENOLATE MOFETIL INJ 1,000 MG in DEXTROSE 5% IN WATE 150 ML INJ 150 ML IV SCH ×4 (05:15→17:18)
[2017-02-25 05:22] LABS: AUTOMATED NEUTROPHIL # 6.2 TH/MM3 (1.8-7.7); BASOPHIL % 0.3 % (0.0-2.0); HEMATOCRIT 31.2 % (35.0-46.0); LYMPH % 0.5 % (9.0-44.0); MEAN CELL VOLUME 74.4 FL (80.0-100.0); MEAN CORPUSCULAR HGB CONC 32.3 % (32.0-36.0); MONO % 5.4 % (0.0-8.0); NEUT % 93.8 % (16.0-70.0); PLATELET COUNT 130 TH/MM3 (150-450); RED BLOOD COUNT 4.19 MIL/MM3 (4.00-5.30); RED CELL DISTRIBUTION WIDTH 19.1 % (11.6-17.2); WHITE BLOOD COUNT 6.7 TH/MM3 (4.0-11.0)
[2017-02-25 05:27] LABS: HEMO FLAGS AUTO DIFF
[2017-02-25 05:44] LABS: BICARBONATE 22.9 MEQ/L (21.0-32.0); POTASSIUM 4.1 MEQ/L (3.5-5.1)
[2017-02-25] MEDS: TACROLIMUS 1 MG CAP PO SCH ×2 (05:45→17:46)
[2017-02-25] MEDS: PCA - TOTAL MG MORPHINE DELIVERED PER SHIFT SCH ×3 (06:00→21:17)
[2017-02-25 07:22] LABS: SCAN/DIFF AUTO DIFF CONFIRMED
[2017-02-25] MEDS: NS 1000 ML IV SCH (07:42)
[2017-02-25] MEDS: SODIUM CHLORIDE 0.9% FLUSH 10 ML FLUSH IV FLUSH SCH ×2 (07:44→21:00)
[2017-02-25] MEDS: PANTOPRAZOLE SODIUM 40 MG VIAL IV PUSH SCH (08:42)
[2017-02-25] MEDS: LABETALOL HCL 300 MG TAB PO SCH ×3 (08:43→17:47)
[2017-02-25] MEDS: amLODIPine BESYLATE 5 MG TAB PO SCH ×2 (08:43→21:00)
[2017-02-25] MEDS: NYSTATIN SUSP 500,000 U/5 ML CUP SWISH-SWAL SCH ×3 (08:43→21:00)
[2017-02-25] MEDS: DOCUSATE SODIUM 100 MG CAP PO SCH ×2 (08:43→21:00)
[2017-02-25] MEDS: CALCIUM CARBONATE 500 MG CHEWABLE TAB CHEW SCH ×2 (08:43→15:56)
[2017-02-25] MEDS: predniSONE 20 MG TAB PO SCH (08:43)
--- NOTE | 2017-02-25 09:41 | HHI.PR ---
Subjective Remarks Awake this AM, sitting up in bed; no c/o GI discomfort; rested well overnight, in better mood this AM; using incentive spirometer; tolerating PO meds this AM, did some walking yesterday but no flatus yet Objective Vital Signs Date Time Temp Pulse Resp B/P Pulse Ox O2 Delivery O2 Flow Rate FiO2 02/25/17 09:00 82 02/25/17 08:00 84 02/25/17 07:00 98.0 82 18 171/102 100 02/25/17 07:00 84 02/25/17 07:00 100 Room Air 02/25/17 06:00 18 02/25/17 04:00 98.2 80 16 162/101 98 02/25/17 03:00 77 02/24/17 23:00 86 02/24/17 23:00 98.0 80 16 152/90 98 02/24/17 22:00 18 02/24/17 20:00 99.0 87 16 156/90 98 02/24/17 20:00 86 02/24/17 20:00 98 Room Air 02/24/17 19:00 87 02/24/17 17:16 98 21 02/24/17 15:29 92 02/24/17 15:07 99.0 90 16 157/85 98 02/24/17 14:00 16 02/24/17 11:16 92 02/24/17 11:16 98.8 92 16 174/96 97 Arterial Line I/O 02/24/17 02/24/17 02/24/17 02/25/17 02/25/17 02/25/17 07:00 15:00 23:00 07:00 15:00 23:00 Intake Total 1853 ml 1082 ml 1573 ml Output Total 915 ml 507 ml 650 ml Balance 938 ml 575 ml 923 ml Intake Oral 0 ml 200 ml 110 ml IV Total 1853 ml 882 ml 1463 ml Output Urine Total 885 ml 482 ml 625 ml Drainage Total 30 ml 25 ml 25 ml # Bowel Movements 0 0 0 Result Diagram: 02/25/17 0509 02/25/17 0509 Objective Remarks -wound C/D/I with smita in place; no ecchymoses, no erythema, no fluctuance or mass, very mild tenderness -Jose G drain with serosanguinous drainage -Jose G drain site without leak, no discharge -Rojas with clear, reid urine -min extrem edema Assessment and Plan Assessment and Plan Creatinine continues to improve. GI symptoms improved, will switch to Myfortic once pass flatus; ambulate today; check FK level on 12/23 Michele Amador MD February 25, 2017 09:41
--- NOTE | 2017-02-25 13:29 | HHI.NPPN ---
Subjective History of Present Illness 47 year old BF with SLE ESRD has Kidney transplant done Additional Remarks Patient is alert, sitting on chair, no SOB, tolerating orally. Review of Systems General Constitutional: Fatigue Gastrointestinal Gastrointestinal: Abdominal Pain Objective Data Data 02/24/17 02/25/17 19:00 07:00 Intake Total 1082 ml 1573 ml Output Total 507 ml 650 ml Balance 575 ml 923 ml Intake Oral 200 ml 110 ml IV Total 882 ml 1463 ml Output Urine Total 482 ml 625 ml Drainage Total 25 ml 25 ml # Bowel Movements 0 0 Vital Signs Date Time Temp Pulse Resp B/P Pulse Ox O2 Delivery O2 Flow Rate FiO2 02/25/17 13:00 79 02/25/17 12:11 80 02/25/17 11:04 80 02/25/17 11:00 98.2 80 18 161/94 100 02/25/17 10:09 83 02/25/17 09:00 82 02/25/17 08:40 99 21 02/25/17 08:00 84 02/25/17 07:00 98.0 82 18 171/102 100 02/25/17 07:00 84 02/25/17 07:00 100 Room Air 02/25/17 06:00 18 02/25/17 04:00 98.2 80 16 162/101 98 02/25/17 03:00 77 02/24/17 23:00 86 02/24/17 23:00 98.0 80 16 152/90 98 02/24/17 22:00 18 02/24/17 20:00 99.0 87 16 156/90 98 02/24/17 20:00 86 02/24/17 20:00 98 Room Air 02/24/17 19:00 87 02/24/17 17:16 98 21 02/24/17 15:29 92 02/24/17 15:07 99.0 90 16 157/85 98 02/24/17 14:00 16 -: 02/25/17 0509 02/25/17 0509 Physical Exam General Appearance: No Acute Distress, Comfortable Pulmonary Resp Exam: Breath Sounds Equal, No Distress, Decreased Bases Cardiology CV Exam: Regular, Normal Sinus Rhythm Gastrointestinal/Abdomen GI Exam: Soft, Non-Tender, Bowel Sounds Present, Bowel Sounds Hypoactive Integumentary Skin Exam: Clear Extremeties Extremities Exam: Trace Edema Neurologic Neuro Exam: Alert, Awake, Oriented Psychiatric Psych Exam: Appropriate Responses Assessment/Plan Problem List: (1) Kidney transplant status, cadaveric Plan: patient is passing urine creatinine declined Completed Thymoglobulin and started on Prograf. continue CellCept started Prograf 3 mg q 12, follow level follow BMP Patient is CMV negative on Valcyte 900 mg. Encourage oral intake. (2) Hypertension Plan: on Norvasc 5 mg increase to bid. Follow the BP. Problem Qualifiers (1) Hypertension: Qualified Code: I10 - Essential hypertension David Rider MD February 25, 2017 13:29
[2017-02-26] VITALS (25 sets, daily range): BP systolic 143–169; BP diastolic 78–101; PULSE 67–84; RESP 16–18; TEMP 97.7–98.1; O2SAT 98–100
[2017-02-26] MEDS ORDERED: BISACODYL 10 MG SUPP RECTAL PRN (01:00)
[2017-02-26] MEDS ORDERED: BISACODYL EC 5 MG TABEC PO PRN (01:00)
[2017-02-26] MEDS: SODIUM CHLOR 0.45% 1000 ML INJ 1,000 ML IV SCH (03:03)
[2017-02-26] MEDS: MYCOPHENOLATE MOFETIL 500 MG TAB PO SCH ×2 (05:35→17:06)
[2017-02-26] MEDS: TACROLIMUS 1 MG CAP PO SCH ×2 (05:35→17:06)
[2017-02-26] MEDS: MYCOPHENOLATE MOFETIL INJ 1,000 MG in DEXTROSE 5% IN WATE 150 ML INJ 150 ML IV SCH ×2 (05:35)
[2017-02-26] MEDS: MORPHINE SULFATE 30 MG/30 ML PCA IV SCH (05:43)
[2017-02-26] MEDS: PCA - TOTAL MG MORPHINE DELIVERED PER SHIFT SCH (05:58)
[2017-02-26 06:46] LABS: BICARBONATE 22.8 MEQ/L (21.0-32.0); MAGNESIUM 1.9 MG/DL (1.5-2.5)
[2017-02-26 06:54] LABS: AUTOMATED NEUTROPHIL # 4.5 TH/MM3 (1.8-7.7); BASOPHIL % 0.3 % (0.0-2.0); EOSINOPHIL # 0.1 TH/MM3 (0-0.4); HEMATOCRIT 29.1 % (35.0-46.0); LYMPH % 6.9 % (9.0-44.0); LYMPHOCYTE # 0.4 TH/MM3 (1.0-4.8); MEAN CELL VOLUME 74.5 FL (80.0-100.0); MEAN CORPUSCULAR HEMOGLOBIN 23.6 PG (27.0-34.0); MEAN CORPUSCULAR HGB CONC 31.6 % (32.0-36.0); MONO % 10.7 % (0.0-8.0); NEUT % 80.1 % (16.0-70.0); PLATELET COUNT 125 TH/MM3 (150-450); RED CELL DISTRIBUTION WIDTH 18.9 % (11.6-17.2); WHITE BLOOD COUNT 5.6 TH/MM3 (4.0-11.0)
[2017-02-26 06:56] LABS: HEMO FLAGS AUTO DIFF
[2017-02-26 09:02] LABS: HELMET CELLS OCC (NORMAL); PLATELET ESTIMATE SMEAR LOW (NORMAL); PLATELET MORPHOLOGY NORMAL (NORMAL)
[2017-02-26] MEDS: PANTOPRAZOLE SODIUM 40 MG VIAL IV PUSH SCH (09:02)
[2017-02-26 09:03] LABS: SCAN/DIFF AUTO DIFF CONFIRMED
[2017-02-26] MEDS: DOCUSATE SODIUM 100 MG CAP PO SCH ×2 (09:03→21:27)
[2017-02-26] MEDS: amLODIPine BESYLATE 5 MG TAB PO SCH ×2 (09:03→21:27)
[2017-02-26] MEDS: NYSTATIN SUSP 500,000 U/5 ML CUP SWISH-SWAL SCH ×3 (09:03→21:27)
[2017-02-26] MEDS: CALCIUM CARBONATE 500 MG CHEWABLE TAB CHEW SCH ×2 (09:03→16:00)
[2017-02-26] MEDS: LABETALOL HCL 300 MG TAB PO SCH ×3 (09:03→17:05)
[2017-02-26] MEDS: predniSONE 20 MG TAB PO SCH (09:03)
[2017-02-26] MEDS: SODIUM CHLORIDE 0.9% FLUSH 10 ML FLUSH IV FLUSH SCH ×2 (09:04→21:00)
--- NOTE | 2017-02-26 11:20 | HHI.NPPN ---
Subjective History of Present Illness 47 year old BF with SLE ESRD has Kidney transplant done Additional Remarks Patient is alert, started on full liquid diet, no abd. pain, no SOB. Review of Systems General Constitutional: Fatigue Gastrointestinal Gastrointestinal: Abdominal Pain Objective Data Data 02/25/17 02/26/17 19:00 07:00 Intake Total 1466 ml 2051 ml Output Total 600 ml 1750 ml Balance 866 ml 301 ml Intake Oral 480 ml 240 ml IV Total 986 ml 1811 ml Output Urine Total 575 ml 1725 ml Drainage Total 25 ml 25 ml # Bowel Movements 0 Vital Signs Date Time Temp Pulse Resp B/P Pulse Ox O2 Delivery O2 Flow Rate FiO2 02/26/17 11:00 98.1 75 18 145/84 100 02/26/17 11:00 75 02/26/17 10:00 75 02/26/17 09:00 74 02/26/17 08:43 98 02/26/17 08:03 71 02/26/17 07:00 98.0 76 16 153/82 100 02/26/17 07:00 76 02/26/17 07:00 100 Room Air 02/26/17 06:00 69 02/26/17 05:58 18 02/26/17 05:43 18 02/26/17 05:00 67 02/26/17 04:00 84 02/26/17 03:00 97.9 79 16 169/101 100 02/26/17 03:00 77 02/26/17 02:00 73 02/26/17 01:00 73 02/26/17 00:00 73 02/25/17 23:00 97.7 75 16 138/77 100 02/25/17 23:00 72 02/25/17 22:00 72 02/25/17 21:17 20 02/25/17 21:15 21 02/25/17 21:00 76 02/25/17 20:00 73 02/25/17 19:00 99 Room Air 02/25/17 19:00 76 02/25/17 19:00 97.4 76 20 140/88 99 02/25/17 18:00 77 02/25/17 17:12 80 02/25/17 16:00 78 02/25/17 15:00 82 02/25/17 15:00 97.9 83 16 155/92 100 02/25/17 14:02 83 02/25/17 14:00 16 02/25/17 13:00 79 02/25/17 12:11 80 -: 02/26/17 0620 02/26/17 0530 Physical Exam General Appearance: No Acute Distress, Comfortable Pulmonary Resp Exam: Breath Sounds Equal, No Distress, Decreased Bases Cardiology CV Exam: Regular, Normal Sinus Rhythm Gastrointestinal/Abdomen GI Exam: Soft, Non-Tender, Bowel Sounds Present, Bowel Sounds Hypoactive Integumentary Skin Exam: Clear Extremeties Extremities Exam: Trace Edema Neurologic Neuro Exam: Alert, Awake, Oriented Psychiatric Psych Exam: Appropriate Responses Assessment/Plan Problem List: (1) Kidney transplant status, cadaveric Plan: Patient is passing urine , the creatinine continue to improve. Completed Thymoglobulin and started on Prograf. continue CellCept started Prograf 3 mg q 12, The level is 2.8, increase the dose. Patient is CMV negative on Valcyte 900 mg. Encourage oral intake. Follow the urine out put and BMP. (2) Hypertension Plan: on Norvasc 5 mg increase to bid. Follow the BP. Problem Qualifiers (1) Hypertension: Qualified Code: I10 - Essential hypertension David Rider MD February 26, 2017 11:20
[2017-02-26] MEDS: NS 1000 ML IV SCH (13:00)
--- NOTE | 2017-02-26 13:06 | HHI.PR ---
Subjective Remarks Awake this afternoon, sitting up in bed; just finished her walk;no c/o GI discomfort; rested well overnight, using incentive spirometer; tolerating PO meds;had flatus yesterday and today Objective Vital Signs Date Time Temp Pulse Resp B/P Pulse Ox O2 Delivery O2 Flow Rate FiO2 02/26/17 12:00 75 02/26/17 11:00 98.1 75 18 145/84 100 02/26/17 11:00 75 02/26/17 10:00 75 02/26/17 09:00 74 02/26/17 08:43 98 02/26/17 08:03 71 02/26/17 07:00 98.0 76 16 153/82 100 02/26/17 07:00 76 02/26/17 07:00 100 Room Air 02/26/17 06:00 69 02/26/17 05:58 18 02/26/17 05:43 18 02/26/17 05:00 67 02/26/17 04:00 84 02/26/17 03:00 97.9 79 16 169/101 100 02/26/17 03:00 77 02/26/17 02:00 73 02/26/17 01:00 73 02/26/17 00:00 73 02/25/17 23:00 97.7 75 16 138/77 100 02/25/17 23:00 72 02/25/17 22:00 72 02/25/17 21:17 20 02/25/17 21:15 21 02/25/17 21:00 76 02/25/17 20:00 73 02/25/17 19:00 99 Room Air 02/25/17 19:00 76 02/25/17 19:00 97.4 76 20 140/88 99 02/25/17 18:00 77 02/25/17 17:12 80 02/25/17 16:00 78 02/25/17 15:00 82 02/25/17 15:00 97.9 83 16 155/92 100 02/25/17 14:02 83 02/25/17 14:00 16 I/O 02/25/17 02/25/17 02/25/17 02/26/17 02/26/17 02/26/17 07:00 15:00 23:00 07:00 15:00 23:00 Intake Total 1573 ml 1466 ml 2051 ml Output Total 650 ml 600 ml 1750 ml Balance 923 ml 866 ml 301 ml Intake Oral 110 ml 480 ml 240 ml IV Total 1463 ml 986 ml 1811 ml Output Urine Total 625 ml 575 ml 1725 ml Drainage Total 25 ml 25 ml 25 ml # Bowel Movements 0 0 Result Diagram: 02/26/17 0620 02/26/17 0530 Objective Remarks -wound C/D/I with smita in place; no ecchymoses, no erythema, no fluctuance or mass, very mild tenderness -Jose G drain with serosanguinous drainage (50cc x 24h) -Jose G drain site without leak, no discharge -Rojas with clear, reid urine (1760cc) -min extremity edema Assessment and Plan Assessment and Plan Creatinine continues to improve. GI symptoms improved, tolerating PO Cellcept; ambulate more today; Michele Amador MD February 26, 2017 13:06
[2017-02-26] MEDS: oxyCODONE/ACETAMINOPHEN 5 MG/325 MG TAB PO PRN (18:27)
[2017-02-27] VITALS (23 sets, daily range): BP systolic 128–163; BP diastolic 69–91; PULSE 71–91; RESP 16–20; TEMP 97.5–98.5; O2SAT 100
[2017-02-27] MEDS: oxyCODONE/ACETAMINOPHEN 5 MG/325 MG TAB PO PRN ×2 (00:13→08:35)
[2017-02-27] MEDS: DEXT 5%-NACL 0.45% 1000 ML INJ 1,000 ML IV SCH (00:20)
[2017-02-27] MEDS: TACROLIMUS 1 MG CAP PO SCH ×2 (05:51→18:06)
[2017-02-27] MEDS: MYCOPHENOLATE MOFETIL 500 MG TAB PO SCH ×2 (05:51→18:06)
[2017-02-27 06:21] LABS: AUTOMATED NEUTROPHIL # 3.2 TH/MM3 (1.8-7.7); BASOPHIL % 0.3 % (0.0-2.0); EOSINOPHIL # 0.1 TH/MM3 (0-0.4); EOSINOPHIL % 2.6 % (0.0-4.0); HEMATOCRIT 30.2 % (35.0-46.0); LYMPH % 13.6 % (9.0-44.0); LYMPHOCYTE # 0.6 TH/MM3 (1.0-4.8); MEAN CELL VOLUME 75.4 FL (80.0-100.0); MEAN CORPUSCULAR HEMOGLOBIN 23.7 PG (27.0-34.0); MEAN CORPUSCULAR HGB CONC 31.4 % (32.0-36.0); MONO % 11.3 % (0.0-8.0); NEUT % 72.2 % (16.0-70.0); PLATELET COUNT 124 TH/MM3 (150-450); RED BLOOD COUNT 4.01 MIL/MM3 (4.00-5.30); RED CELL DISTRIBUTION WIDTH 19.2 % (11.6-17.2); WHITE BLOOD COUNT 4.5 TH/MM3 (4.0-11.0)
[2017-02-27 06:36] LABS: HEMO FLAGS AUTO DIFF
[2017-02-27 06:49] LABS: BICARBONATE 22.2 MEQ/L (21.0-32.0); MAGNESIUM 1.9 MG/DL (1.5-2.5); POTASSIUM 3.9 MEQ/L (3.5-5.1)
[2017-02-27 07:36] LABS: OVALOCYTES 1+ (NORMAL)
[2017-02-27 07:37] LABS: PLATELET ESTIMATE SMEAR LOW (NORMAL); PLATELET MORPHOLOGY NORMAL (NORMAL); SCAN/DIFF AUTO DIFF CONFIRMED
--- NOTE | 2017-02-27 08:22 | HHI.PR ---
Subjective Remarks Awake this AM, sitting on the side of the bed; tolerated soft diet well; had BM last night Objective Vital Signs Date Time Temp Pulse Resp B/P Pulse Ox O2 Delivery O2 Flow Rate FiO2 02/27/17 06:00 71 02/27/17 05:00 83 02/27/17 04:00 71 02/27/17 03:00 97.6 78 16 147/80 100 02/27/17 03:00 80 02/27/17 02:00 75 02/27/17 01:02 18 02/27/17 01:00 74 02/27/17 00:00 76 02/26/17 23:00 97.8 75 18 160/94 100 02/26/17 23:00 70 02/26/17 22:00 73 02/26/17 21:00 77 02/26/17 20:00 77 02/26/17 19:02 21 02/26/17 19:00 74 02/26/17 19:00 97.7 75 16 143/78 100 02/26/17 18:04 77 02/26/17 17:00 80 02/26/17 16:07 78 02/26/17 15:00 98.1 77 18 150/87 100 02/26/17 15:00 77 02/26/17 14:08 78 02/26/17 13:08 74 02/26/17 12:00 75 02/26/17 11:00 98.1 75 18 145/84 100 02/26/17 11:00 75 02/26/17 10:00 75 02/26/17 09:00 74 02/26/17 08:43 98 I/O 02/26/17 02/26/17 02/26/17 02/27/17 02/27/17 02/27/17 07:00 15:00 23:00 07:00 15:00 23:00 Intake Total 2051 ml 1092 ml 762 ml Output Total 1750 ml 1222 ml 1065 ml Balance 301 ml -130 ml -303 ml Intake Oral 240 ml 480 ml 360 ml IV Total 1811 ml 612 ml 402 ml Output Urine Total 1725 ml 1222 ml 1050 ml Drainage Total 25 ml 15 ml # Bowel Movements 0 1 Result Diagram: 02/27/1751902/27/17519 Objective Remarks -dressing dry stained -Jose G drain with serosanguinous drainage (35cc x 24h) -Jose G drain site without leak, no discharge -Rojas with clear, reid urine (1020cc) -min extremity edema Assessment and Plan Assessment and Plan Creatinine in normal range. GI symptoms resolved, tolerating PO Cellcept; ambulate again today, replace Phosphorus;FK levels not available x 2 days Michele Amador MD February 27, 2017 08:22
[2017-02-27] MEDS: NYSTATIN SUSP 500,000 U/5 ML CUP SWISH-SWAL SCH ×3 (08:37→20:19)
[2017-02-27] MEDS: CALCIUM CARBONATE 500 MG CHEWABLE TAB CHEW SCH ×2 (08:38→16:56)
[2017-02-27] MEDS: predniSONE 20 MG TAB PO SCH (08:38)
[2017-02-27] MEDS: PANTOPRAZOLE SODIUM 40 MG VIAL IV PUSH SCH (08:38)
[2017-02-27] MEDS: amLODIPine BESYLATE 5 MG TAB PO SCH ×2 (08:38→20:19)
[2017-02-27] MEDS: DOCUSATE SODIUM 100 MG CAP PO SCH (08:38)
[2017-02-27] MEDS: SULFAMETHOXAZOLE-TRIMETHOPRIM DS 800-160 MG TAB PO SCH (08:39)
[2017-02-27] MEDS: LABETALOL HCL 300 MG TAB PO SCH ×3 (08:39→18:06)
[2017-02-27] MEDS: SODIUM CHLORIDE 0.9% FLUSH 10 ML FLUSH IV FLUSH SCH (08:39)
[2017-02-27] MEDS ORDERED: SODIUM PHOSPHATE INJ 30 MMOL in SODIUM CHLOR 0.9% 250 ML INJ 250 ML IV ONE (09:00)
[2017-02-27] MEDS: NS 1000 ML IV SCH (10:32)
--- NOTE | 2017-02-27 12:55 | PHATRASOAP ---
Date/Time: 02/27/17 4907 Pharmacist daily assessment of kidney transplant patient: S: Post op renal transplant day #5 O: Ht: 5 ft 4 in Wt: 75kg Allergies: NKA SCR = 1.17 A: Vitals: BP = 140s/80s Electrolytes: Na= 137, K=3.9, Ca= 9.5, Phosphorus=1, Mg=1.8 Albumin = 3.5 WBC=4.5 H/H=9.5/30.2 NH=507 PGA=7783 mL BM = 1 Tacrolimus level 02/26=5 Hospital Medications: Thymoglobulin 4 mg/kg as 3 divided doses since admission) Cellcept 1000 mg po bid Prograf 4 mg po BID Prednisone 20mg PO Daily Valganciclovir 900 mg po daily Calcium 500 mg po BID Labetalol 300mg PO TID Amlodipine 5mg PO BID Hydralazine 20mg IV Q4H PRN Percocet 5/325mg PO Q4H PRN pain -Patient had received 3 doses of Thymoglobulin with total dose to date 4 mg/kg reflected with appropriate drop in WBC. -Patient phosphorus level is low, might consider one time dose of Sodium phosphate 30mmol to elevate level then might consider starting Kphos neutral to maintain steady phosphorus level. -BP well controlled with scheduled and PRN medications. - Pain is well controlled with Percocet P: -Might consider Sodium phosphate 30mmol x 1 -Might consider Kphos neutral 500mg PO TID -Continue BP meds -Continue Tacrolimus / Valganciclovir / Bactrim / Prednisone/Cellcept -Continue Percocet. Pharmacist: Judith MenezesD Signature on file Consulting Physician:
[2017-02-27] MEDS ORDERED: LOPERAMIDE HCL 2 MG CAP PO PRN (13:45)
--- NOTE | 2017-02-27 13:46 | HHI.NPPN ---
Subjective History of Present Illness 47 year old BF with SLE ESRD has Kidney transplant done Additional Remarks Patient is alert, c/o diarrhea, wound drainage Review of Systems General Constitutional: Fatigue Gastrointestinal Gastrointestinal: Abdominal Pain Objective Data Data 02/26/17 02/27/17 19:00 07:00 Intake Total 1092 ml 762 ml Output Total 1222 ml 1065 ml Balance -130 ml -303 ml Intake Oral 480 ml 360 ml IV Total 612 ml 402 ml Output Urine Total 1222 ml 1050 ml Drainage Total 15 ml # Bowel Movements 1 Vital Signs Date Time Temp Pulse Resp B/P Pulse Ox O2 Delivery O2 Flow Rate FiO2 02/27/17 11:30 97.6 75 19 128/69 100 02/27/17 10:39 73 02/27/17 09:00 80 02/27/17 08:00 82 02/27/17 07:40 97.5 86 19 160/91 100 02/27/17 07:00 77 02/27/17 06:00 71 02/27/17 05:00 83 02/27/17 04:00 71 02/27/17 03:00 97.6 78 16 147/80 100 02/27/17 03:00 80 02/27/17 02:00 75 02/27/17 01:02 18 02/27/17 01:00 74 02/27/17 00:00 76 02/26/17 23:00 97.8 75 18 160/94 100 02/26/17 23:00 70 02/26/17 22:00 73 02/26/17 21:00 77 02/26/17 20:00 77 02/26/17 19:02 21 02/26/17 19:00 74 02/26/17 19:00 97.7 75 16 143/78 100 02/26/17 18:04 77 02/26/17 17:00 80 02/26/17 16:07 78 02/26/17 15:00 98.1 77 18 150/87 100 02/26/17 15:00 77 02/26/17 14:08 78 -: 02/27/17 0520 02/27/17 0520 Physical Exam General Appearance: No Acute Distress, Comfortable Pulmonary Resp Exam: Breath Sounds Equal, No Distress, Decreased Bases Cardiology CV Exam: Regular, Normal Sinus Rhythm Gastrointestinal/Abdomen GI Exam: Soft, Non-Tender, Bowel Sounds Present, Bowel Sounds Hypoactive Integumentary Skin Exam: Clear Extremeties Extremities Exam: Trace Edema Neurologic Neuro Exam: Alert, Awake, Oriented Psychiatric Psych Exam: Appropriate Responses Assessment/Plan Problem List: (1) Kidney transplant status, cadaveric Plan: oozing check US Kidney for fluid collection diarrhea stop stool softener use Imodium Last Tacrolimus level 5 on Prograf 4 mg q 12, await level today Patient is CMV negative on Valcyte 900 mg. Encourage oral intake. Follow the urine out put and BMP. (2) Hypertension Plan: on Norvasc 5 mg increase to bid. Follow the BP. Problem Qualifiers (1) Hypertension: Qualified Code: I10 - Essential hypertension Alfredito Issa MD February 27, 2017 13:46
[2017-02-27] MEDS ORDERED: POTASSIUM PHOSPHATE/SODIUM PHOSPHATE 250 MG TAB PO SCH (14:00)
--- NOTE | 2017-02-27 15:18 | PHATRANEDU ---
Date/Time: 02/27/17 9336 Pharmacist Patient Education: Education on medication compliance: Counseled patient on the crucial importance of compliance with all her medication especially her anti-rejection medication. Educated patient on the different frequency of her different medication and how to take her medication in regards to meals to minimize side effects and maximize benefits. Education on medication side effects: Counseled on various side effects of her anti-rejection and anti-infective medications: Educated patient on the tendency of anti-rejection medications to increase her blood pressure and blood sugars, educated patient to continue to monitor blood pressure and notify physician if she noticed increase in blood pressure above her normal value. Educated patients on side effects associated with Tacrolimus, Mycophenolate and Prednisone. Moreover educated patient of side effects of Bactrim, Valganciclovir and Nystatin. Educated patient on the action plan needed when any side effects occurs. Education on signs and symptoms of rejection/ Infection: Educated patient on different signs and symptoms of rejection that include: -Decreased urine output. -A temperature above 100* F (37.8* C). -Tenderness in the area of your new kidney. -Bloody or foul smelling urine. -Flu-like feelings. -Weight gain (more than 5 pounds in two days). Educated patient on signs and symptoms of infection that include: -A fever above 100* F (37.8* C). -Drainage or bad odor of drainage from your surgical scar. -Burning when you pass your urine. -A cold or cough that will not go away. -Flu-like feelings. Action plan needed in situation of rejection Infection or medications side effects: Educated patient on need to contact his physician if he noticed any of the above symptoms. Educated patient to follow with his physician on time for labs and follow ups. Pharmacist: Judith Barajas PharmD Signature on file
--- NOTE | 2017-02-27 16:35 | RADRPT ---
EXAM DATE/TIME: 02/27/2017 15:26 [facility] COMPARISON: No previous studies available for comparison. INDICATIONS : Leaking from incision site. MEDICAL HISTORY : Myocardial infarction. Hypertension. Thyroid disease. ESRD. Diabetes. Anemia. SURGICAL HISTORY : Coronary artery stent. Cholecystectomy. Parathyroid surgery. Steroid injection laser treatment. Per ioneal dialysis. Kidney transplant. Blood transfusions. Left AV fistula. Tenchkhoff catheter placemen t and removal. ENCOUNTER: Initial ACUITY: 4-6 days PAIN SCORE: 0/10 LOCATION: Right lower quadrant MEASUREMENTS: TRANSPLANT KIDNEY: 14.4 x 5.3 x 6.8 cm LOCATION: Right lower quadrant. ARCUATE ARTERIES RESISTIVE INDEX: Upper - 0.7 Mid - 0.7 Lower - 0.7 RA/EIA Ratio: 2.1 MAIN RENAL ARTERY VELOCITY: I believe there are 2 vessels identified. Upper pole vessel shows velocities of 127 cm/s at the mid/l ower pole vessel 271 cm/s: MAIN RENAL VEIN: Patent EXTERNAL ILIAC ARTERY VELOCITY (cm/sec): 271.2 * NORMAL DOPPLER FINDINGS Arcuate arteries - RI = 0.6 - 0.8 Renal artery = under 200 cm/sec Renal vein = May be monophasic with continuous flow or demonstrate some pulsatility with cardiac cycl e FINDINGS: TRANSPLANT KIDNEY: Normal cortical thickness and echotexture. No hydronephrosis, stone, or mass. Free fluid is identifi ed. URINARY BLADDER: Within normal limits given the degree of distension. Decompressed with a Rojas catheter. CONCLUSION: 1. Peritransplant fluid. 2. Normal resistive indices throughout. 3. There is suggestion of 2 renal arteries. The lower pole vessel shows elevated velocities of 271 cm /s which may be indicative of a focal stenosis. If this configuration is concordant with the surgical history, CTA of the transplant may be useful for further anatomic characterization. Titi Garcia MD on February 27, 2017 at 16:26 Board Certified Radiologist. This report was verified electronically.
[2017-02-27] MEDS ORDERED: KPHOS250 PO (17:47)
[2017-02-27] MEDS ORDERED: CALC500C16 CHEW (17:47)
[2017-02-27] MEDS ORDERED: BACT800T5 PO (17:47)
[2017-02-27] MEDS ORDERED: NYST1000 SWISH-SWAL (17:47)
[2017-02-27] MEDS ORDERED: VALG450 PO (17:47)
[2017-02-27] MEDS ORDERED: MYCO500 PO (17:47)
[2017-02-27] MEDS ORDERED: AMLO5 PO (17:47)
[2017-02-27] MEDS ORDERED: TACR1 PO (17:47)
[2017-02-27] MEDS ORDERED: DOCU1CAP39 PO (17:47)
[2017-02-27] MEDS ORDERED: PRED20 PO (17:47)
--- NOTE | 2017-02-27 17:52 | HHI.DS ---
Discharge Summary Admission Date February 22, 2017 at 11:14 Admitting Diagnosis End-stage renal disease for kidney transplant (1) ESRD (end stage renal disease) on dialysis Diagnosis: Principal Plan: Patient has received kidney transplant offer, she appears to good candidate and has been on the list initiated the protocol give her CellCept, she will receive Solu-Medrol and Thymoglobulin in the operating room Dr. Amador will follow She understands that that after the transplant. His gradual improvement and occasionally hemodialysis needs to be performed (2) Hypertension Diagnosis: Secondary Plan: Continue monitor (3) SLE (systemic lupus erythematosus) Diagnosis: Secondary Plan: Patient has been treated in the past Consultants Dr. Amador Procedures Right lower abdomen kidney transplant Brief History Patient is a 47-year-old female with history of end-stage renal disease, diabetes, hypertension, SLE who is on hemodialysis has a left arm AV fistula received her dialysis this morning, she was called in for a kidney transplant, she denies any chest pain shortness of breath palpitations, fevers chills at, nausea vomiting diarrhea, she states she is in fine health and there are no medical issues, she saw us in and out of December this year, she is on the list for kidney transplant. CBC/BMP: 02/27/17 0520 02/27/17 0520 Significant Findings Laboratory Tests Test 02/25/17 02/26/17 02/26/17 02/27/17 05:09 05:30 06:20 05:20 Hemoglobin 10.1 GM/DL 9.2 GM/DL 9.5 GM/DL (11.6-15.3) (11.6-15.3) (11.6-15.3) Hematocrit 31.2 % 29.1 % 30.2 % (35.0-46.0) (35.0-46.0) (35.0-46.0) Mean Corpuscular Volume 74.4 FL 74.5 FL 75.4 FL (80.0-100.0) (80.0-100.0) (80.0-100.0) Mean Corpuscular Hemoglobin 24.0 PG 23.6 PG 23.7 PG (27.0-34.0) (27.0-34.0) (27.0-34.0) Red Cell Distribution Width 19.1 % 18.9 % 19.2 % (11.6-17.2) (11.6-17.2) (11.6-17.2) Platelet Count 130 TH/MM3 125 TH/MM3 124 TH/MM3 (150-450) (150-450) (150-450) Neutrophils (%) (Auto) 93.8 % 80.1 % 72.2 % (16.0-70.0) (16.0-70.0) (16.0-70.0) Lymphocytes (%) (Auto) 0.5 % 6.9 % (9.0-44.0) (9.0-44.0) Lymphocytes # (Auto) 0.0 TH/MM3 0.4 TH/MM3 0.6 TH/MM3 (1.0-4.8) (1.0-4.8) (1.0-4.8) Blood Urea Nitrogen 28 MG/DL (7-18) 22 MG/DL (7-18) 20 MG/DL (7-18) Creatinine 2.09 MG/DL 1.61 MG/DL 1.17 MG/DL (0.50-1.00) (0.50-1.00) (0.50-1.00) Estimat Glomerular Filtration 31 ML/MIN (>89) 42 ML/MIN (>89) 60 ML/MIN (>89) Rate Random Glucose 146 MG/DL 117 MG/DL (74-106) (74-106) Phosphorus Level 1.6 MG/DL 1.0 MG/DL (2.5-4.9) (2.5-4.9) Red Blood Count 3.90 MIL/MM3 (4.00-5.30) Mean Corpuscular Hemoglobin 31.6 % 31.4 % Concent (32.0-36.0) (32.0-36.0) Monocytes (%) (Auto) 10.7 % 11.3 % (0.0-8.0) (0.0-8.0) Platelet Estimate LOW (NORMAL) LOW (NORMAL) Ovalocytes 1+ (NORMAL) PE at Discharge GENERAL: Well-nourished, well-developed patient. SKIN: Warm and dry. HEAD: Normocephalic. EYES: No scleral icterus. No injection or drainage. NECK: Supple, trachea midline. No JVD or lymphadenopathy. CARDIOVASCULAR: Regular rate and rhythm without murmurs, gallops, or rubs. RESPIRATORY: Breath sounds equal bilaterally. No accessory muscle use. GASTROINTESTINAL: Abdomen soft, non-tender, nondistended. Incision looked clean and some oozing was present and she was instructed to use sterile gauze EXTREMITIES: No cyanosis, or edema. NEUROLOGICAL: Awake, alert, and oriented x 3. Non-focal. Hospital Course Patient is admitted for kidney transplant she underwent the procedure and received Thymoglobulin induction treatment she recovered unremarkably and started making urine creatinine continued to decline and at the time of discharge it was 1.17 she had some fluid around the transplanted kidney on ultrasound she was instructed to leave the wound open USE sterile gauze for drainage Patient will be coming at the transplant center for follow-up Pt Condition on Discharge: Good Discharge Disposition: Discharge Home Discharge Instructions DIET: Follow Instructions for: As Tolerated, No Restrictions Activities you can perform: Full Weight Bearing, Shower Only-No Bath New Medications: Amlodipine (Norvasc) 5 Mg Tab 5 MG PO BID hypertension Days 30 Ref 5 TAB Calcium Carbonate (Antacid) (Calcium Carbonate (Antacid)) 500 Mg Chew 500 MG CHEW BID@09,16 bone #60 Ref 5 EA Docusate Sodium (Dok) 100 Mg Cap 100 MG PO BID stool softener Days 30 Ref 5 CAP Mycophenolate (Cellcept) 500 Mg Tab 1000 MG PO BID@06,18 TXP #30 Ref 11 TAB Nystatin Liq (Nystatin Liq) 100,000 unit/ml Susp 5 ML SWISH-SWAL TID@09,13,21 TXP Days 30 Ref 0 BOTTLE Potassium Phosphate-Sodium Phosphate (K-Phos Neutral) 155-852-130 Mg Tab 500 MG PO Q8HR TXP #90 Ref 3 TAB Prednisone (Prednisone) 20 Mg Tab 20 MG PO DAILY TXP Days 30 Ref 0 TAB Sulfamethoxazole-Trimethoprim (Bactrim DS) 800-160 Mg Tab 1 TAB PO MoWeFr@09 TXP #60 Ref 3 TAB Tacrolimus (Prograf) 1 Mg Cap 4 MG PO BID@06,18 TXP Days 30 Ref 11 CAP Valganciclovir (Valcyte) 450 Mg Tab 900 MG PO DAILY TXP Days 30 Ref 5 TAB Continued Medications: Acetaminophen (Tylenol) 325 Mg Cap 650 MG PO Q6H PRN pain Ref 0 CAP Clonidine (Clonidine) 0.1 Mg Tab 0.1 MG PO BID PRN SBP>180, DBP>95 #60 Ref 0 TAB Labetalol (Labetalol) 300 Mg Tab 300 MG PO TID Blood Pressure Management Ref 0 TAB Discontinued Medications: Furosemide (Lasix) 80 Mg Tab 80 MG PO BID #60 Ref 0 TAB Lisinopril (Lisinopril) 20 Mg Tab 20 MG PO BID #30 Ref 0 TAB Mycophenolate (Cellcept) 500 Mg Tab 500 MG PO BID Immunosuppression #120 Ref 0 TAB Sevelamer Carbonate (Renvela) 800 Mg Tab 800 MG PO TIDAC Control phosphorous levels #90 Ref 0 TAB Spironolactone (Aldactone) 25 Mg Tab 25 MG PO BID #30 Ref 0 TAB Alfredito Issa MD February 27, 2017 17:52
== END 2017-02-27 20:40 | disposition home or self-care (01) | DRG 652 ==
LOC: OBSVTOIN 11:14 → HCIS 11:14 → HCIN 02-23 02:04
PROVIDERS: ADMIT Internal Medicine Nephrology; ATTEND Internal Medicine Nephrology
PROC: 0TY00Z0 Transplantation of Right Kidney, Allogeneic, Open Approach (ICD-10-PCS; principal; 2017-02-23)
PROC: 02HV33Z Insertion of Infusion Device into Superior Vena Cava, Percutaneous Approach (ICD-10-PCS; 2017-02-23)
DX: I12.0 Hypertensive chronic kidney disease with stage 5 chronic kidney disease or end stage renal disease (principal); E11.22 Type 2 diabetes mellitus with diabetic chronic kidney disease; N18.6 End stage renal disease; M32.9 Systemic lupus erythematosus, unspecified; G47.33 Obstructive sleep apnea (adult) (pediatric); D64.9 Anemia, unspecified; Z99.2 Dependence on renal dialysis
CPT/HCPCS: 36430; 71010; 71020; 76776; 80048; 80053; 80197; 82805; 82948; 83735; 84100; 85007; 85025; 85027; 85610; 85730; 86850; 86900; 86901; 86920; 93005; 94150; C9113; J0131; J0171; J0360; J0690; J1200; J1644; J1720; J2250; J2270; J2405; J2440; J2930; J3010; J7030; J7040; J7050; J7507; J7511; J7512; J7517; P9016; Q0163

== ENCOUNTER → 2017-03-09 | Outpatient (CLI) | payer MEDICARE, BC ==
[~2017-03-09] MED LIST: ACET1CAP18 PO; AMLO5 PO; BACT800T5 PO; CALC500C16 CHEW; CLON0.1T PO; DOCU1CAP39 PO; KPHOS250 PO; LABE300T PO; MYCO500 PO; NYST1000 SWISH-SWAL; PRED20 PO; TACR1 PO; VALG450 PO
--- NOTE | 2017-03-09 13:46 | RADRPT ---
EXAM DATE/TIME: 03/09/2017 12:29 [facility] COMPARISON: US KIDNEY / TRANSPLANT, February 27, 2017, 15:26. INDICATIONS : Fluid collection. MEDICAL HISTORY : Myocardial infarction. Hypertension. Thyroid disease. ESRD. Diabetes. Anemia. SURGICAL HISTORY : Coronary artery stent. Cholecystectomy. Parathyroid surgery. Steroid injection laser treatment. Perio judson dialysis. Kidney transplant. Blood transfusions. Left AV fistula. Tenchkhoff catheter placement and removal.. ENCOUNTER: Subsequent ACUITY: 1 week PAIN SCORE: 0/10 LOCATION: Right lower quadrant MEASUREMENTS: TRANSPLANT KIDNEY: 15.0 x 6.3 x 6.8 cm LOCATION: Right lower quadrant. ARCUATE ARTERIES RESISTIVE INDEX: Upper - 0.7 Mid - 0.7 Lower - 0.8 RA/EIA Ratio: 1.3 MAIN RENAL ARTERY VELOCITY: (cm/sec): 161.4 MAIN RENAL VEIN: Patent EXTERNAL ILIAC ARTERY VELOCITY (cm/sec): 123.3 * NORMAL DOPPLER FINDINGS Arcuate arteries - RI = 0.6 - 0.8 Renal artery = under 200 cm/sec Renal vein = May be monophasic with continuous flow or demonstrate some pulsatility with cardiac cycl e FINDINGS: TRANSPLANT KIDNEY: Normal cortical thickness and echotexture. No hydronephrosis, stone, or mass. Small amount of fluid to the left of the transplant superior to the bladder. URINARY BLADDER: Within normal limits given the degree of distension. CONCLUSION: Intact waveforms within the kidney. A small amount of free fluid left of the transplant Arpit Fisher MD on March 09, 2017 at 13:44 Board Certified Radiologist. This report was verified electronically.
== END ==
LOC: HRAD 11:44
PROVIDERS: ATTEND Surgery
DX: Z48.22 Encounter for aftercare following kidney transplant (principal)
CPT/HCPCS: 36415; 76776; 80053; 80197; 83735; 84100; 85025; 99024

== ENCOUNTER → 2017-09-21 | Outpatient (CLI) | payer MEDICARE, BC ==
[2017-09-21 09:36] LABS: FERRITIN 637 NG/ML (8-252); TRANSFERRIN IRON PROFILE 222 MG/DL (200-360)
== END ==
LOC: CLAB 07:58
PROVIDERS: ATTEND Specialist
DX: E78.1 Pure hyperglyceridemia (principal); I10 Essential (primary) hypertension; D46.4 Refractory anemia, unspecified; E11.9 Type 2 diabetes mellitus without complications
CPT/HCPCS: 36415; 82607; 82728; 82746; 83540; 83550; 84443

== ENCOUNTER 2018-02-22 16:43 | Inpatient (IN) | payer MEDICARE, BC ==
[2018-02-22] VITALS (8 sets, daily range): BP systolic 137–155; BP diastolic 81–90; PULSE 70–77; RESP 18–20; TEMP 98–98.7; O2SAT 98–100
[~2018-02-22] VITALS: Ht 165.1 cm; Wt 84.0 kg
[2018-02-22] MEDS: SODIUM CHLOR 0.9% 1000 ML INJ 1,000 ML IV SCH (18:04)
[2018-02-22] MEDS ORDERED: ZOLPIDEM TARTRATE 5 MG TAB PO PRN (18:15)
[2018-02-22] MEDS ORDERED: NALOXONE HCL 0.4 MG/ML AMP IV PUSH PRN (18:15)
[2018-02-22] MEDS ORDERED: GLUCAGON 1 MG/ML VIAL OTHER PRN (18:15)
[2018-02-22] MEDS ORDERED: MAGNESIUM HYDROXIDE SUSP 30 ML CUP PO PRN (18:15)
[2018-02-22] MEDS ORDERED: SODIUM CHLORIDE 0.9% FLUSH 10 ML FLUSH IV FLUSH PRN (18:15)
[2018-02-22] MEDS ORDERED: ONDANSETRON HCL 4 MG/2 ML VIAL IVP PRN (18:15)
[2018-02-22] MEDS ORDERED: cloNIDine HCL 0.1 MG TAB PO PRN (18:15)
[2018-02-22] MEDS ORDERED: SENNOSIDES 8.6 MG TAB PO PRN (18:15)
[2018-02-22] MEDS ORDERED: DEXTROSE 50% IN WATER 50 ML VIAL(D50) IV PUSH PRN (18:15)
[2018-02-22] MEDS ORDERED: LACTULOSE SYRUP 20 GM/30 ML CUP PO PRN (18:15)
[2018-02-22] MEDS ORDERED: BISACODYL 10 MG SUPP RECTAL PRN (18:15)
--- NOTE | 2018-02-22 18:31 | HHI.HP ---
HPI Service Transplant medicine Primary Care Physician No Primary Care Physician Admission Diagnosis Acute renal failure dehydration possible resection Diagnoses: (1) Acute renal failure Diagnosis: Principal (2) Hyperkalemia Diagnosis: Secondary (3) Dehydration Diagnosis: Principal (4) Kidney transplant status, cadaveric Diagnosis: Principal (5) Diabetes Diagnosis: Secondary International Travel<30 Days: No Contact w/Intl Traveler<30days: No Known Affected Area: No History of Present Illness Patient is a 48-year-old -[place] female with history of SLE, ESRD, hypertension who has developed diabetes and has been on glimepiride, she had kidney transplant on 02/22/2017, today she came in for outpatient visit and noted to have a creatinine of 2.07, potassium of 5.5, her baseline creatinine runs around 1.31, she denies any dysuria or burning as such she states that she has been drinking water however she did have increasing joint pains in her hands and feet for which he takes Tylenol, she was about to see her lupus doctor Dr. Mendez, she has been admitted for IV hydration and possible kidney biopsy in the morning. Review of Systems Constitutional: COMPLAINS OF: Fatigue Endocrine: DENIES: Abnorml menstrual pattern, Heat/cold intolerance, Polydipsia , Polyuria, Polyphagia Eyes: DENIES: Blurred vision, Diplopia, Eye inflammation, Eye pain, Vision loss , Photosensitivity, Double Vision Ears, nose, mouth, throat: DENIES: Tinnitus, Hearing loss, Vertigo, Nasal discharge, Oral lesions, Throat pain, Hoarseness, Ear Pain, Running Nose, Epistaxis, Sinus Pain, Toothache, Odynophagia Respiratory: DENIES: Apneas, Cough, Snoring, Wheezing, Hemoptysis, Sputum production, Shortness of breath Cardiovascular: DENIES: Chest pain, Palpitations, Syncope, Dyspnea on Exertion , PND, Lower Extremity Edema, Orthopnea, Claudication Gastrointestinal: DENIES: Abdominal pain, Black stools, Bloody stools, Constipation, Diarrhea, Nausea, Vomiting, Difficulty Swallowing, Anorexia Genitourinary: DENIES: Abnormal vaginal bleeding, Dysmenorrhea, Dyspareunia, Sexual dysfunction, Urinary frequency, Urinary incontinence, Urgency, Hematuria , Dysuria, Nocturia, Vaginal discharge Musculoskeletal: COMPLAINS OF: Joint pain, Muscle aches, Stiffness, Back pain Integumentary: DENIES: Abnormal pigmentation, Pruritus, Rash, Nail changes, Breast masses, Breast skin changes, Nipple discharge Hematologic/lymphatic: DENIES: Bruising, Lymphadenopathy Immunologic/allergic: DENIES: Eczema, Urticaria Neurologic: DENIES: Abnormal gait, Headache, Localized weakness, Paresthesias, Seizures, Speech Problems, Tremor, Poor Balance Psychiatric: COMPLAINS OF: Anxiety Past Family Social History Past Medical History ESRD Kidney transplant in 02/22/2017 Hypertension Diabetes SLE Osteoarthritis History of hyperparathyroid Coronary artery disease Past Surgical History Tenckhoff catheter Kidney transplant in February 2017 Coronary artery stent Parathyroid surgery Eye surgery Reported Medications Reported Meds & Active Scripts Active K-Phos Neutral (Potassium Phos/Sodium Phos) [id number] Mg Tab 500 Mg PO Q8HR Prograf (Tacrolimus) 1 Mg Cap 7 Mg PO BID@06,18 30 Days Dok (Docusate Sodium) 100 Mg Cap 100 Mg PO BID 30 Days Norvasc (Amlodipine Besylate) 5 Mg Tab 5 Mg PO BID 30 Days Reported Labetalol (Labetalol HCl) 300 Mg Tab 300 Mg PO TID Clonidine (Clonidine HCl) 0.1 Mg Tab 0.1 Mg PO BID PRN Allergies: Coded Allergies: No Known Allergies (Unverified , 02/22/17) Active Ordered Medications Current Medications Medications (Trade) Dose Ordered Sig/Handy Route Start Time Stop Time Status Last Admin Sodium Chloride 1,000 ml @ 100 mls/hr Q10H IV 02/22/18 18:04 UNV (NS Flush) 2 ml UNSCH PRN IV FLUSH 02/22/18 18:15 UNV (NS Flush) 2 ml BID IV FLUSH 02/22/18 21:00 UNV (Tylenol) 650 mg Q4H PRN PO 02/22/18 18:15 UNV (Zofran Inj) 4 mg Q6H PRN IVP 02/22/18 18:15 UNV (Ambien) 5 mg HS PRN PO 02/22/18 18:15 UNV (Narcan Inj) 0.4 mg UNSCH PRN IV PUSH 02/22/18 18:15 UNV (Keyona-Colace) 1 tab BID PO 02/22/18 21:00 UNV (Milk Of Magnesia Liq) 30 ml Q12H PRN PO 02/22/18 18:15 UNV (Senokot) 17.2 mg Q12H PRN PO 02/22/18 18:15 UNV (Dulcolax Supp) 10 mg DAILY PRN RECTAL 02/22/18 18:15 UNV (Lactulose Liq) 30 ml DAILY PRN PO 02/22/18 18:15 UNV (Norvasc) 5 mg BID PO 02/22/18 21:00 UNV (Catapres) 0.1 mg BID PRN PO 02/22/18 18:15 UNV (Trandate) 300 mg TID PO 02/23/18 09:00 UNV (Prograf) 4 mg BID@,18 PO 02/23/18 06:00 UNV (Cellcept) 500 mg TID PO 02/22/18 21:00 UNV (Deltasone) 5 mg DAILY PO 02/23/18 09:00 UNV Family History Noncontributory Social History Denies smoking or alcohol use Physical Exam Vital Signs Vital Signs Date Time Temp Pulse Resp B/P (MAP) Pulse Ox O2 Delivery O2 Flow Rate FiO2 02/22/18 17:53 98.7 70 18 137/81 (99) 100 Physical Exam GENERAL: This is a well-nourished, well-developed patient, in no apparent distress. SKIN: No rashes, ecchymoses or lesions. Cool and dry. HEAD: Atraumatic. Normocephalic. No temporal or scalp tenderness. EYES: Pupils equal round and reactive. Extraocular motions intact. No scleral icterus. No injection or drainage. ENT: Nose without bleeding, purulent drainage or septal hematoma. Throat without erythema, tonsillar hypertrophy or exudate. Uvula midline. Airway patent. NECK: Trachea midline. No JVD or lymphadenopathy. Supple, nontender, no meningeal signs. CARDIOVASCULAR: Regular rate and rhythm without murmurs, gallops, or rubs. RESPIRATORY: Clear to auscultation. Breath sounds equal bilaterally. No wheezes , rales, or rhonchi. GASTROINTESTINAL: Abdomen soft, non-tender, nondistended. No hepato-splenomegaly , or palpable masses. No guarding. Right lower abdominal incision without any tenderness MUSCULOSKELETAL: Extremities without clubbing, cyanosis, or edema. No joint tenderness, effusion, or edema noted. No calf tenderness. Negative Homans sign bilaterally. NEUROLOGICAL: Awake and alert. Cranial nerves II through XII intact. Motor and sensory grossly within normal limits. Five out of 5 muscle strength in all muscle groups. Normal speech. Caprini VTE Risk Assessment Caprini VTE Risk Assessment: No/Low Risk (score <= 1) Caprini Risk Assessment Model Point Value = 1 Point Value = 2 Point Value = 3 Point Value = 5 Age 41-60 Minor surgery BMI > 25 kg/m2 Swollen legs Varicose veins or History of unexplained or recurrent spontaneous Oral contraceptives or hormone replacement Sepsis (< 1 month) Serious lung disease, including pneumonia (< 1 month) Abnormal pulmonary function Acute myocardial infarction Congestive heart failure (< 1 month) History of inflammatory bowel disease Medical patient at bed rest Age 61-74 Arthroscopic surgery Major open surgery (> 45 min) Laparoscopic surgery (> 45 min) Malignancy Confined to bed (> 72 hours) Immobilizing plaster cast Central venous access Age >= 75 History of VTE Family history of VTE Factor V Leiden Prothrombin [id number] Lupus anticoagulant Anticardiolipin antibodies Elevated serum homocysteine Heparin-induced thrombocytopenia Other congenital or acquired thrombophilia Stroke (< 1 month) Elective arthroplasty Hip, pelvis, or leg fracture Acute spinal cord injury (< 1 month) Prophylaxis Regimen Total Risk Factor Score Risk Level Prophylaxis Regimen 0-1 Low Early ambulation 2 Moderate Order ONE of the following: *Sequential Compression Device (SCD) *Heparin 5000 units SQ BID 3-4 Higher Order ONE of the following medications: *Heparin 5000 units SQ TID *Enoxaparin/Lovenox 40 mg SQ daily (WT < 150 kg, CrCl > 30 mL/min) *Enoxaparin/Lovenox 30 mg SQ daily (WT < 150 kg, CrCl > 10-29 mL/min) *Enoxaparin/Lovenox 30 mg SQ BID (WT < 150 kg, CrCl > 30 mL/min) AND/OR *Sequential Compression Device (SCD) 5 or more Highest Order ONE of the following medications: *Heparin 5000 units SQ TID (Preferred with Epidurals) *Enoxaparin/Lovenox 40 mg SQ daily (WT < 150 kg, CrCl > 30 mL/min) *Enoxaparin/Lovenox 30 mg SQ daily (WT < 150 kg, CrCl > 10-29 mL/min) *Enoxaparin/Lovenox 30 mg SQ BID (WT < 150 kg, CrCl > 30 mL/min) AND *Sequential Compression Device (SCD) Assessment and Plan Problem List: (1) Kidney transplant status, cadaveric ICD Codes: Z94.0 - Kidney transplant status Status: Acute Plan: Patient is being admitted for overnight hydration continue to monitor labs and plan to do kidney biopsy in the morning Get baseline kidney ultrasound Continue with tacrolimus, mycophenolate and prednisone Monitor labs in the morning (2) Acute renal failure ICD Codes: N17.9 - Acute kidney failure, unspecified Plan: This could be due to uncontrolled diabetes or rejection we will evaluated for the (3) Hyperkalemia ICD Codes: E87.5 - Hyperkalemia Plan: Likely due to renal failure (4) Dehydration ICD Codes: E86.0 - Dehydration Plan: Normal saline at 100 cc an hour (5) Diabetes ICD Codes: E11.9 - Type 2 diabetes mellitus without complications Status: Chronic Plan: Insulin/hospice educator/dietitian (6) Hypertension ICD Codes: I10 - Essential (primary) hypertension Status: Acute (7) SLE (systemic lupus erythematosus) ICD Codes: M32.9 - Systemic lupus erythematosus, unspecified Status: Chronic Plan: Check SERA serum complement Physician Certification 2 Midnight Certification Type: Admission for Inpatient Services Order for Inpatient Services The services are ordered in accordance with Medicare regulations or non- Medicare payer requirements, as applicable. In the case of services not specified as inpatient-only, they are appropriately provided as inpatient services in accordance with the 2-midnight benchmark. Estimated LOS (days): 3 3 days is the estimated time the patient will need to remain in the hospital, assuming treatment plan goals are met and no additional complications. Post-Hospital Plan: Home Problem Qualifiers (1) Diabetes: Alfredito Issa MD February 22, 2018 18:31
[2018-02-22] MEDS: INSULIN ASPART SUPPLEMENTAL SCALE SQ SCH (19:43)
--- NOTE | 2018-02-22 20:23 | RADRPT ---
EXAM DATE/TIME: 02/22/2018 19:38 [facility] COMPARISON: No previous studies available for comparison. INDICATIONS : COPD MEDICAL HISTORY : Chronic obstructive pulmonary disease. Myocardial infarction. Hypertension. Thyroid disease. ES RD. Diabetes. Anemia SURGICAL HISTORY : Coronary artery stent. Cholecystectomy. Parathyroid surgery. Steroid injection.Perioneal dialysis. Ki dney transplant. Blood transfusions. Left AV fistula. Tenchkhoff catheter placement and removal. ENCOUNTER: Initial ACUITY: 1 day PAIN SCORE: 0/10 LOCATION: Bilateral chest FINDINGS: A single view of the chest demonstrates the lungs to be symmetrically aerated without evidence of mas s, infiltrate or effusion. The cardiomediastinal contours are unremarkable. Osseous structures are intact. CONCLUSION: No acute disease. Lewis Murphy MD on February 22, 2018 at 20:20 Board Certified Radiologist. This report was verified electronically.
[2018-02-22] MEDS: SODIUM CHLORIDE 0.9% FLUSH 10 ML FLUSH IV FLUSH SCH (21:00)
[2018-02-22] MEDS: DOCUSATE SODIUM 50 MG/SENNA 8.6 MG TAB PO SCH (21:00)
[2018-02-22] MEDS: INSULIN DETEMIR 100 UNITS/ML VIAL SQ SCH (21:00)
[2018-02-22 21:22] LABS: BILIRUBIN, URINE NEG (NEG); BLOOD, URINE NEG (NEG); GLUCOSE,URINE 1000 mg/dL (NEG); KETONE, URINE NEG (NEG); NITRITE,URINE NEG (NEG); PH, URINE 5.5 (5.0-8.5); SQUAMOUS EPITHELIAL CELL URINE 1 /hpf (0-5); URINE COLOR LIGHT-YELLOW (YELLW/STRAW); URINE LEUKOCYTE ESTERASE NEG (NEG)
[2018-02-22] MEDS: amLODIPine BESYLATE 5 MG TAB PO SCH (21:28)
[2018-02-22] MEDS: CINACALCET HYDROCHLORIDE 30 MG TAB PO SCH (21:28)
[2018-02-22] MEDS: MYCOPHENOLATE MOFETIL 500 MG TAB PO SCH (21:28)
[2018-02-23] VITALS (27 sets, daily range): BP systolic 124–149; BP diastolic 65–87; PULSE 65–102; RESP 16–20; TEMP 98–98.5; O2SAT 92–100
[2018-02-23] MEDS: SODIUM CHLOR 0.9% 1000 ML INJ 1,000 ML IV SCH ×2 (04:04→15:01)
[2018-02-23] MEDS ORDERED: TACROLIMUS 1 MG CAP PO SCH ×2 (06:00)
[2018-02-23] MEDS: GLIMEPIRIDE 2 MG TAB PO SCH ×3 (06:03→15:43)
[2018-02-23 06:09] LABS: AUTOMATED NEUTROPHIL # 3.1 TH/MM3 (1.8-7.7); BASOPHIL % 0.4 % (0.0-2.0); EOSINOPHIL % 0.7 % (0.0-4.0); HEMATOCRIT 28.9 % (35.0-46.0); HEMOGLOBIN 9.3 GM/DL (11.6-15.3); LYMPH % 31.3 % (9.0-44.0); LYMPHOCYTE # 1.7 TH/MM3 (1.0-4.8); MEAN CELL VOLUME 80.2 FL (80.0-100.0); MEAN CORPUSCULAR HEMOGLOBIN 25.7 PG (27.0-34.0); MEAN CORPUSCULAR HGB CONC 32.1 % (32.0-36.0); MEAN PLATELET VOLUME 11.3 FL (7.0-11.0); MONO % 10.5 % (0.0-8.0); MONOCYTE # 0.6 TH/MM3 (0-0.9); NEUT % 57.1 % (16.0-70.0); PLATELET COUNT 106 TH/MM3 (150-450); RED CELL DISTRIBUTION WIDTH 14.9 % (11.6-17.2); WHITE BLOOD COUNT 5.5 TH/MM3 (4.0-11.0)
[2018-02-23 06:15] LABS: INTERNATIONAL NORMALIZED RATIO 1.1 RATIO; PROTHROMBIN TIME - PATIENT 11.1 SEC (9.8-11.6)
[2018-02-23 06:29] LABS: COMPLEMENT C4 25 MG/DL (10-40)
[2018-02-23 07:08] LABS: ALBUMIN 3.1 GM/DL (3.4-5.0); ALKALINE PHOSPHATASE 62 U/L (45-117); ALT (GPT) 14 U/L (10-53); AST (GOT) 9 U/L (15-37); BLOOD UREA NITROGEN 29 MG/DL (7-18); CALCIUM 8.1 MG/DL (8.5-10.1); CHLORIDE 117 MEQ/L (98-107); CREATININE 1.29 MG/DL (0.50-1.00); GLOMERULAR FILTRATION RATE 54 ML/MIN (>89); GLUCOSE,RANDOM 82 MG/DL (74-106); MAGNESIUM 1.4 MG/DL (1.5-2.5); PHOSPHORUS 2.4 MG/DL (2.5-4.9); SODIUM (NA) 143 MEQ/L (136-145); TOTAL BILIRUBIN ADULT 0.2 MG/DL (0.2-1.0); TOTAL PROTEIN 6.2 GM/DL (6.4-8.2)
[2018-02-23] MEDS: INSULIN ASPART SUPPLEMENTAL SCALE SQ SCH ×4 (08:00→21:03)
[2018-02-23] MEDS: predniSONE 5 MG TAB PO SCH (08:20)
[2018-02-23] MEDS: MYCOPHENOLATE MOFETIL 500 MG TAB PO SCH ×3 (08:20→17:39)
[2018-02-23] MEDS: DOCUSATE SODIUM 50 MG/SENNA 8.6 MG TAB PO SCH ×2 (08:20→21:00)
[2018-02-23] MEDS: SODIUM CHLORIDE 0.9% FLUSH 10 ML FLUSH IV FLUSH SCH ×2 (08:20→21:00)
[2018-02-23] MEDS: amLODIPine BESYLATE 5 MG TAB PO SCH ×2 (08:20→21:00)
[2018-02-23] MEDS: LABETALOL HCL 300 MG TAB PO SCH ×3 (08:20→17:39)
--- NOTE | 2018-02-23 10:15 | RADRPT ---
EXAM DATE/TIME: 02/23/2018 08:31 [facility] COMPARISON: US KIDNEY / TRANSPLANT, March 09, 2017, 12:29. INDICATIONS : Renal transplant rejection. MEDICAL HISTORY : Myocardial infarction. Hypertension. Thyroid disease. ESRD. Diabetes. Anemia. SURGICAL HISTORY : Coronary artery stent. Cholecystectomy. Parathyroid surgery. Steroid injection laser treatment. Perio judson dialysis. Kidney transplant. Blood transfusions. Left AV fistula. Tenchkhoff catheter placement and removal. ENCOUNTER: Subsequent ACUITY: 1 day PAIN SCORE: 0/10 LOCATION: Right lower quadrant MEASUREMENTS: TRANSPLANT KIDNEY: 11.1 x 6.0 x 4.7 cm LOCATION: Right lower quadrant. PREVIOUS ULTRASOUND: Mar 09 2017 RA/EIA Ratio: 1.3 PREVIOUS ARCUATE ARTERIES INDEX: Upper - 0.7 Mid - 0.7 Lower - 0.8 ARCUATE ARTERIES RESISTIVE INDEX: Upper - 0.7 Mid - 0.7 Lower - 0.7 RA/EIA Ratio: 1.3 MAIN RENAL ARTERY VELOCITY: (cm/sec): 175.3 MAIN RENAL VEIN: Patent EXTERNAL ILIAC ARTERY VELOCITY (cm/sec): 135.2 FINDINGS: TRANSPLANT KIDNEY: Normal cortical thickness and echotexture. No hydronephrosis, stone, or mass. No peritransplant flu id collection. URINARY BLADDER: Within normal limits given the degree of distension. CONCLUSION: 1. Normal ultrasound appearance of the right lower quadrant renal transplant. It is normal in size wi thout hydronephrosis. 2. Renal vascular assessment is within normal limits. Rodrigue Cardona MD on February 23, 2018 at 9:32 Board Certified Radiologist. This report was verified electronically.
--- NOTE | 2018-02-23 15:06 | HHI.NPPN ---
Subjective History of Present Illness 48 year old BF with kidney transplant DM SLE HTN has ARF High G started on Insulin Objective Data Data Vital Signs Date Time Temp Pulse Resp B/P (MAP) Pulse Ox O2 Delivery O2 Flow Rate FiO2 02/23/18 11:15 98.4 76 18 141/81 (101) 100 02/23/18 10:00 98 02/23/18 09:00 102 02/23/18 08:15 98.0 70 18 140/71 (94) 100 02/23/18 08:00 92 02/23/18 07:00 74 02/23/18 04:00 98.3 78 20 140/87 (104) 100 02/23/18 04:00 78 02/23/18 03:00 76 02/23/18 02:05 68 02/23/18 01:00 74 02/23/18 00:00 74 02/22/18 23:19 77 02/22/18 23:05 98.6 74 20 155/90 (111) 98 02/22/18 22:00 76 02/22/18 21:00 75 02/22/18 20:00 76 02/22/18 20:00 98.6 72 18 146/81 (102) 98 02/22/18 19:00 72 02/22/18 18:01 70 02/22/18 17:53 98.7 70 18 137/81 (99) 100 -: 02/23/18 0504 02/23/18 0504 Physical Exam General Appearance: Well Developed, Well Nourished Neck Neck Exam: Neck Supple Pulmonary Resp Exam: Clear Bilaterally Cardiology CV Exam: Regular, Normal Sinus Rhythm Gastrointestinal/Abdomen GI Exam: Soft, Non-Tender, Bowel Sounds Present Integumentary Skin Exam: Clear Extremeties Extremities Exam: No Edema Neurologic Neuro Exam: Alert, Awake, Oriented Assessment/Plan Problem List: (1) Kidney transplant status, cadaveric ICD Codes: Z94.0 - Kidney transplant status Status: Acute Plan: doing well Cr declined to 1.2 US reviewed add Na HCO3 as Non anion gap acidosis appears dehydrated due to uncontrolled diabetes started on Insulin Tac levels high 9 cut back Tacrolimus to 5 mg q 12 keep levels at 5-7 range, on Prednisone and Cellcept Endocrine Consult pending seen by deburrer /educator follow BMP if stable dc home (2) Diabetes ICD Codes: E11.9 - Type 2 diabetes mellitus without complications Status: Chronic Plan: she did have Hx of diabetes await Endocrine consult (3) Hypertension ICD Codes: I10 - Essential (primary) hypertension Status: Acute Plan: continue to monitor Problem Qualifiers (1) Diabetes: Alfredito Issa MD February 23, 2018 15:06
[2018-02-23] MEDS: FAMOTIDINE 20 MG TAB PO SCH ×2 (15:43→21:00)
[2018-02-23] MEDS ORDERED: MAGNESIUM SULFATE 1 GM PREMIX 100 ML IV ONE (16:00)
[2018-02-23] MEDS: TACROLIMUS 5 MG CAP PO SCH (17:39)
[2018-02-23] MEDS: SODIUM BICARBONATE 650 MG TAB PO SCH (21:00)
[2018-02-23] MEDS: POTASSIUM PHOSPHATE MONOBASIC 500 MG TAB PO SCH (21:00)
[2018-02-23] MEDS: MAGNESIUM OXIDE 400 MG TAB PO SCH (21:00)
[2018-02-23] MEDS: CINACALCET HYDROCHLORIDE 30 MG TAB PO SCH (21:00)
[2018-02-23] MEDS: INSULIN DETEMIR 100 UNITS/ML VIAL SQ SCH (21:02)
--- NOTE | 2018-02-23 21:42 | EKG ---
Date Performed: 02/22/2018 Time Performed: 22:03:16 PTAGE: 48 years EKG: Sinus rhythm Possible left ventricular hypertrophy Inferior/lateral ST-T changes may be due to hypertrophy and/or ischemia Since the previous tracing, no significant change noted Abnormal ECG PREVIOUS TRACING : 02/22/2017 12.29 DOCTOR: Macarena Bhakta Interpretating Date/Time 02/23/2018 16:57:25
[2018-02-24] VITALS (16 sets, daily range): BP systolic 122–157; BP diastolic 67–93; PULSE 62–84; RESP 16–18; TEMP 98.2; O2SAT 100
[2018-02-24] MEDS: SODIUM CHLOR 0.9% 1000 ML INJ 1,000 ML IV SCH ×2 (01:29→10:55)
[2018-02-24] MEDS: ACETAMINOPHEN 325 MG TAB PO PRN ×2 (04:21→10:54)
[2018-02-24 05:37] LABS: BICARBONATE 18.5 MEQ/L (21.0-32.0); CALCIUM 9.3 MG/DL (8.5-10.1); CREATININE 1.27 MG/DL (0.50-1.00); MAGNESIUM 1.8 MG/DL (1.5-2.5); PHOSPHORUS 2.8 MG/DL (2.5-4.9)
[2018-02-24] MEDS: TACROLIMUS 5 MG CAP PO SCH (05:46)
[2018-02-24] MEDS: SODIUM BICARBONATE 650 MG TAB PO SCH ×2 (05:46→13:10)
[2018-02-24 06:01] LABS: AUTOMATED NEUTROPHIL # 3.1 TH/MM3 (1.8-7.7); BASOPHIL % 0.4 % (0.0-2.0); EOSINOPHIL % 0.7 % (0.0-4.0); HEMATOCRIT 30.9 % (35.0-46.0); HEMOGLOBIN 9.7 GM/DL (11.6-15.3); LYMPH % 34.5 % (9.0-44.0); LYMPHOCYTE # 1.9 TH/MM3 (1.0-4.8); MEAN CELL VOLUME 80.7 FL (80.0-100.0); MEAN CORPUSCULAR HEMOGLOBIN 25.4 PG (27.0-34.0); MEAN CORPUSCULAR HGB CONC 31.4 % (32.0-36.0); MEAN PLATELET VOLUME 11.3 FL (7.0-11.0); MONO % 9.9 % (0.0-8.0); MONOCYTE # 0.6 TH/MM3 (0-0.9); NEUT % 54.5 % (16.0-70.0); PLATELET COUNT 121 TH/MM3 (150-450); RED BLOOD COUNT 3.83 MIL/MM3 (4.00-5.30); RED CELL DISTRIBUTION WIDTH 14.5 % (11.6-17.2); WHITE BLOOD COUNT 5.6 TH/MM3 (4.0-11.0)
[2018-02-24] MEDS: INSULIN ASPART SUPPLEMENTAL SCALE SQ SCH ×2 (08:00→12:16)
[2018-02-24] MEDS: GLIMEPIRIDE 2 MG TAB PO SCH (08:14)
[2018-02-24] MEDS: SODIUM CHLORIDE 0.9% FLUSH 10 ML FLUSH IV FLUSH SCH (08:19)
[2018-02-24] MEDS: amLODIPine BESYLATE 5 MG TAB PO SCH (08:19)
[2018-02-24] MEDS: LABETALOL HCL 300 MG TAB PO SCH ×2 (08:19→13:00)
[2018-02-24] MEDS: FAMOTIDINE 20 MG TAB PO SCH (08:20)
[2018-02-24] MEDS: predniSONE 5 MG TAB PO SCH (08:20)
[2018-02-24] MEDS: MYCOPHENOLATE MOFETIL 500 MG TAB PO SCH ×2 (08:20→11:24)
[2018-02-24] MEDS: MAGNESIUM OXIDE 400 MG TAB PO SCH (08:20)
[2018-02-24] MEDS: POTASSIUM PHOSPHATE MONOBASIC 500 MG TAB PO SCH (08:20)
[2018-02-24] MEDS: DOCUSATE SODIUM 50 MG/SENNA 8.6 MG TAB PO SCH (09:00)
--- NOTE | 2018-02-24 12:09 | HHI.DS ---
Discharge Summary Admission Date February 22, 2018 at 16:43 Admitting Diagnosis Acute renal failure dehydration possible resection (1) Kidney transplant status, cadaveric Diagnosis: Secondary Plan: Patient is being admitted for overnight hydration continue to monitor labs and plan to do kidney biopsy in the morning Get baseline kidney ultrasound Continue with tacrolimus, mycophenolate and prednisone Monitor labs in the morning ICD Codes: Z94.0 - Kidney transplant status Status: Chronic (2) Acute renal failure Diagnosis: Principal Plan: This could be due to uncontrolled diabetes or rejection we will evaluated for the ICD Codes: N17.9 - Acute kidney failure, unspecified (3) Hyperkalemia Diagnosis: Secondary Plan: Likely due to renal failure ICD Codes: E87.5 - Hyperkalemia (4) Dehydration Diagnosis: Principal Plan: Normal saline at 100 cc an hour ICD Codes: E86.0 - Dehydration (5) Diabetes Diagnosis: Principal Plan: Insulin/air quality specialist/dietitian ICD Codes: E11.9 - Type 2 diabetes mellitus without complications Status: Chronic (6) Hypertension ICD Codes: I10 - Essential (primary) hypertension Status: Acute (7) SLE (systemic lupus erythematosus) Diagnosis: Secondary Plan: Check SERA serum complement ICD Codes: M32.9 - Systemic lupus erythematosus, unspecified Status: Chronic Brief History Patient is a 48-year-old -[place] female with history of SLE, ESRD, hypertension who has developed diabetes and has been on glimepiride, she had kidney transplant on 02/22/2017, today she came in for outpatient visit and noted to have a creatinine of 2.07, potassium of 5.5, her baseline creatinine runs around 1.31, she denies any dysuria or burning as such she states that she has been drinking water however she did have increasing joint pains in her hands and feet for which he takes Tylenol, she was about to see her lupus doctor Dr. Mendez, she has been admitted for IV hydration and possible kidney biopsy in the morning. CBC/BMP: 02/24/18 0439 02/24/18 0439 Significant Findings Laboratory Tests Test 02/22/18 19:19 02/23/18 05:04 02/24/18 04:39 Urine Glucose (UA) 1000 mg/dL (NEG) Red Blood Count 3.60 MIL/MM3 (4.00-5.30) 3.83 MIL/MM3 (4.00-5.30) Hemoglobin 9.3 GM/DL (11.6-15.3) 9.7 GM/DL (11.6-15.3) Hematocrit 28.9 % (35.0-46.0) 30.9 % (35.0-46.0) Mean Corpuscular Hemoglobin 25.7 PG (27.0-34.0) 25.4 PG (27.0-34.0) Platelet Count 106 TH/MM3 (150-450) 121 TH/MM3 (150-450) Mean Platelet Volume 11.3 FL (7.0-11.0) 11.3 FL (7.0-11.0) Monocytes (%) (Auto) 10.5 % (0.0-8.0) 9.9 % (0.0-8.0) Blood Urea Nitrogen 29 MG/DL (7-18) 24 MG/DL (7-18) Creatinine 1.29 MG/DL (0.50-1.00) 1.27 MG/DL (0.50-1.00) Total Protein 6.2 GM/DL (6.4-8.2) Albumin 3.1 GM/DL (3.4-5.0) Calcium Level 8.1 MG/DL (8.5-10.1) Phosphorus Level 2.4 MG/DL (2.5-4.9) Magnesium Level 1.4 MG/DL (1.5-2.5) Aspartate Amino Transf (AST/SGOT) 9 U/L (15-37) Chloride Level 117 MEQ/L (98-107) 114 MEQ/L (98-107) Carbon Dioxide Level 16.0 MEQ/L (21.0-32.0) 18.5 MEQ/L (21.0-32.0) Estimat Glomerular Filtration Rate 54 ML/MIN (>89) 55 ML/MIN (>89) Parathyroid Hormone (Intact) 96.3 PG/ML (12.4-76.8) Mean Corpuscular Hemoglobin Concent 31.4 % (32.0-36.0) Random Glucose 109 MG/DL (74-106) PE at Discharge GENERAL: Well-nourished, well-developed patient. SKIN: Warm and dry. HEAD: Normocephalic. EYES: No scleral icterus. No injection or drainage. NECK: Supple, trachea midline. No JVD or lymphadenopathy. CARDIOVASCULAR: Regular rate and rhythm without murmurs, gallops, or rubs. RESPIRATORY: Breath sounds equal bilaterally. No accessory muscle use. GASTROINTESTINAL: Abdomen soft, non-tender, nondistended. EXTREMITIES: No cyanosis, or edema. NEUROLOGICAL: Awake, alert, and oriented x 3. Non-focal. Hospital Course Patient was admitted and started on IV fluid normal saline at 100 cc an hour of creatinine declined to 1.2 next day, blood sugars were improved with addition of insulin, Kidney ultrasound was reviewed and it did not show any obstructive uropathy, patient continued to do well and seen by dietitian and air quality specialist She states that she knows how to use insulin and needs supplies She has done this before and after kidney failure diabetes improved and she no longer required intervention, after kidney transplant she is diabetic again And placed on insulin Levemir along with sliding scale insulin coverage. Pt Condition on Discharge: Good Discharge Disposition: Discharge Home Discharge Instructions DIET: Follow Instructions for: Diabetic Diet Activities you can perform: Regular-No Restrictions Alfredito Issa MD February 24, 2018 12:09
[2018-02-24] MEDS ORDERED: BLOOKIT15 (12:42)
[2018-02-24] MEDS ORDERED: MYCO500 PO (12:42)
[2018-02-24] MEDS ORDERED: ACCUTES SQ (12:42)
[2018-02-24] MEDS ORDERED: SODI650T PO (12:42)
[2018-02-24] MEDS ORDERED: FAMO20TA2 PO (12:42)
[2018-02-24] MEDS ORDERED: TACR5 PO (12:42)
[2018-02-24] MEDS ORDERED: ACCUTES (12:42)
[2018-02-24] MEDS ORDERED: LABE300T PO (12:42)
[2018-02-24] MEDS ORDERED: NOVOINJ3 SQ (12:42)
[2018-02-24] MEDS ORDERED: INSU1INJ5 SQ (12:42)
[2018-02-24] MEDS ORDERED: PRED5TAB PO (12:42)
[2018-02-24] MEDS ORDERED: AMAR2TAB PO (12:42)
== END 2018-02-24 13:53 | disposition home or self-care (01) | DRG 683 ==
LOC: HCIS 16:43
PROVIDERS: ADMIT Internal Medicine Nephrology; ATTEND Internal Medicine Nephrology
DX: N17.9 Acute kidney failure, unspecified (principal); E87.2 Acidosis; M32.9 Systemic lupus erythematosus, unspecified; E11.65 Type 2 diabetes mellitus with hyperglycemia; Z94.0 Kidney transplant status; I10 Essential (primary) hypertension; E87.5 Hyperkalemia; E86.0 Dehydration; I25.10 Atherosclerotic heart disease of native coronary artery without angina pectoris; M19.90 Unspecified osteoarthritis, unspecified site; Z79.84 Long term (current) use of oral hypoglycemic drugs; Z95.5 Presence of coronary angioplasty implant and graft
CPT/HCPCS: 71045; 76776; 80048; 80053; 80197; 81001; 82948; 83735; 83970; 84100; 85025; 85610; 85730; 86038; 86160; 93005; J1815; J3475; J7030; J7507; J7512; J7517